=== PATIENT | male | born 1985 | race Caucasian/White ===

== ENCOUNTER 2016-06-16 12:55 | Emergency (ER) | payer OTHER ==
[~2016-06-16] VITALS: Ht 170.2 cm; Wt 95.0 kg
[~2016-06-16 12:55] MED LIST: CLIN1CAP5 PO; HYDR-3533 PO
[2016-06-16 13:17] VITALS: BP 107/73; PULSE 71; RESP 16; TEMP 98.3; O2SAT 97
--- NOTE | 2016-06-16 13:37 | PD ---
HPI Chief Complaint: Musculoskeletal Complaint Time Seen by Provider: 13:36 Travel History International Travel<30 days: No Contact w/Intl Traveler<30days: No Traveled to known affect area: No History of Present Illness HPI 30-year-old male with history of cystic fibrosis, kidney stones and Crohn's disease presents to the ED for evaluation of 2 day history of central back pain. Worsened by turning over in bed at night. Patient describes the pain as constant, somewhat diminished during the course of the day but still aching. He denies chest pain, palpitations, shortness of breath, abdominal pain, nausea or vomiting. He denies dysuria or urinary frequency. He does endorse dark color to the urine. Denies penile discharge. Denies numbness, tingling, weakness, limitations to range of motion of the lower extremities. Denies any known trauma to the back. PFSH Past Medical History Cystic Fibrosis: Yes Diminished Hearing: No Diverticulitis: Yes (CROHN'S DISEASE ) Gastrointestinal Disorders: Yes (CROHNS DISEASE) Respiratory: Yes (CYSTIC FIBROSIS) Immunizations Current: Yes Past Surgical History Abdominal Surgery: Yes (BOWEL RESECTIONS X 3 , 1983,1996,1998) Social History Alcohol Use: No Tobacco Use: No Substance Use: No Allergies-Medications (Allergen,Severity, Reaction): Coded Allergies: No Known Allergies (Unverified , 06/16/16) Reported Meds & Prescriptions Reported Meds & Active Scripts Active Flexeril (Cyclobenzaprine HCl) 10 Mg Tab 10 Mg PO TID Ibuprofen 800 Mg Tab 800 Mg PO Q8H PRN Review of Systems Except as stated in HPI: all other systems reviewed are Neg Physical Exam Narrative GENERAL: Well-nourished, well-developed nontoxic appearing white male in no acute distress. SKIN: Warm and dry. No rashes noted. HEAD: Normocephalic. EYES: No scleral icterus. No injection or drainage. NECK: Supple, trachea midline. No JVD or lymphadenopathy. CARDIOVASCULAR: Regular rate and rhythm without murmurs, gallops, or rubs. 2+ DP and radial pulses bilaterally. RESPIRATORY: Breath sounds clear and equal bilaterally. No accessory muscle use. GASTROINTESTINAL: Abdomen soft, non-tender, nondistended. Bowel sounds. MUSCULOSKELETAL: No cyanosis, or edema. He is noted to walk with a normal gait. BACK: Nontender without obvious deformity. ++ Bilateral CVA tenderness. Data Data Last Documented VS Vital Signs Date Time Temp Pulse Resp B/P Pulse Ox O2 Delivery O2 Flow Rate FiO2 06/16/16 13:17 98.3 71 16 107/73 97 Orders Urinalysis - C+S If Indicated (06/16/16 14:07) Ct Abd/Pel W/O Iv Contrast (06/16/16 14:10) Labs Laboratory Tests Test 06/16/16 14:30 Urine Collection Type CLEAN CATCH Urine Color YELLOW Urine Turbidity CLEAR Urine pH 6.0 Urine Specific [place] 1.018 Urine Protein NEG mg/dL Urine Glucose (UA) NEG mg/dL Urine Ketones NEG mg/dL Urine Occult Blood NEG Urine Nitrite NEG Urine Bilirubin NEG Urine Leukocyte Esterase NEG Urine WBC 0-2 /hpf Microscopic Urinalysis Comment CULT NOT INDICATED MDM Medical Decision Making Medical Screen Exam Complete: Yes Emergency Medical Condition: Yes Differential Diagnosis Pyelonephritis versus musculoskeletal pain versus nephroureterolithiasis versus other Narrative Course 30-year-old male with history of cystic fibrosis, kidney stones and Crohn's disease presents to the ED for evaluation of 2 day history of central back pain. Worsened by turning over in bed at night. Patient describes the pain as constant, somewhat diminished during the course of the day but still aching. Endorses dark colored urine. He denies chest pain, palpitations, shortness of breath, abdominal pain, nausea or vomiting, dysuria, increased urinary frequency ,penile discharge, numbness, tingling, weakness, limitations to range of motion of the lower extremities, known trauma to the back. Vitals reviewed. No culture indicated of the UA. CT reveals a 2 mm prostatic urethral stone, several nonobstructing stones in the right kidney. No obstructive uropathy noted. Discussed the results of CT with the patient. I explained to him that he had almost passed a kidney stone and had several more stones in the right kidney. I prescribed him 800 mg ibuprofen 3 times a day as needed for pain also prescribed a short course of muscle relaxers. Patient's instructed to follow-up with the urologist for further evaluation, return to the ED for worsening of symptoms. He indicated understanding of the instructions and was amenable to the plan of care. This patient is stable and discharged home. Diagnosis Primary Impression: Calculus of right kidney Additional Impression: Urethral stone Referrals: Primary Care Physician Urologist Patient Instructions: General Instructions, Kidney Stones (ED) Additional Instructions: Rest, hydrate. Take medications as prescribed. Do not drive while taking Flexeril. Follow-up with the urologist as discussed. Return to the ED for any urgent or emergent medical condition. Med/Other Pt SpecificInfo: Prescription(s) given Scripts Cyclobenzaprine (Flexeril)10 Mg Tab10 Mg PO TID #12 TAB Ref 0 Prov:Eric Rae MD 06/16/16 Ibuprofen 800 Mg [id number] Mg PO Q8H PRN (Pain/Inflammation) #20 TAB Ref 0 Prov:Eric Rae MD 06/16/16 Disposition: 01 DISCHARGE HOME Condition: Stable Areli Phillips Jun 16, 2016 13:36
[2016-06-16 14:36] LABS: BLOOD, URINE NEG (NEG); GLUCOSE,URINE NEG (NEG); KETONE, URINE NEG (NEG); NITRITE,URINE NEG (NEG)
[2016-06-16 14:46] LABS: COMMENT (UR) CULT NOT INDICATED; CULTURE IF INDICATED CULT NOT INDICATED; METHOD OF COLLECTION CLEAN CATCH; URINE COLOR YELLOW (YELLW/STRAW); WBC, URINE 0-2 /hpf (0-5)
--- NOTE | 2016-06-16 15:37 | RADHPO ---
EXAM DATE/TIME: 06/16/2016 15:06 [facility] COMPARISON: CT ABDOMEN & PELVIS W CONTRAST, November 07, 2013, 23:17. INDICATIONS : Back pain, right flank pain. ORAL CONTRAST: No oral contrast ingested. RADIATION DOSE: 23.43 CTDIvol (mGy) MEDICAL HISTORY : Crohn's disease. SURGICAL HISTORY : Colon resection. ENCOUNTER: Initial ACUITY: 1 day PAIN SCALE: 3/10 LOCATION: Abdomen TECHNIQUE: Volumetric scanning of the abdomen and pelvis was performed. Using automated exposure control and ad justment of the mA and/or kV according to patient size, radiation dose was kept as low as reasonably achievable to obtain optimal diagnostic quality images. FINDINGS: LOWER LUNGS: The visualized lower lungs are clear. LIVER: Liver is severely fatty infiltrated. No focal hepatic lesions seen. No ductal dilatation. SPLEEN: Normal size without lesion. PANCREAS: Diffuse fatty infiltration of the pancreas without mass or inflammatory changes. KIDNEYS: Right nonobstructing stones stones are present, 3 mm right upper pole, 2 mm right mid zone, 4 mm righ t mid zone to lower pole and 1 mm right lower pole. No stone on the left. No hydronephrosis or hydrou reter on either side. 2 mm stone seen of the upper prostate and may be within the urethra. It may hav e recently passed down one of the ureters. ADRENAL GLANDS: Within normal limits. VASCULAR: There is no aortic aneurysm. BOWEL/MESENTERY: Moderate stool throughout the colon. Nonobstructive pattern. No focal inflammatory changes are demons trated. There is no free fluid. ABDOMINAL WALL: Within normal limits. RETROPERITONEUM: There is no lymphadenopathy. BLADDER: No wall thickening or mass. REPRODUCTIVE: Within normal limits. INGUINAL: There is no lymphadenopathy or hernia. MUSCULOSKELETAL: Within normal limits for patient age. CONCLUSION: 1. 2 mm stone that is potentially in the prostatic urethra and could have recently passed out of one of the ureters. No acute obstructive uropathy demonstrated. There are several nonobstructing stones o f the right kidney. 2. Severe fatty infiltration of the liver. 3. No obstruction or acute inflammatory changes seen of the gastrointestinal tract. Moderate stool th roughout the colon. Florin Arredondo MD on June 16, 2016 at 15:31 Board Certified Radiologist. This report was verified electronically.
[2016-06-16] MEDS ORDERED: CYCL1TAB29 PO (15:46)
[2016-06-16] MEDS ORDERED: IBUP800T23 PO (15:46)
== END 2016-06-16 15:51 | disposition home or self-care (01) ==
LOC: PHEFT 12:55
DX: N20.0 Calculus of kidney (principal); N21.1 Calculus in urethra
CPT/HCPCS: 74176; 81001

== ENCOUNTER 2016-09-07 16:24 | Inpatient (IN) | payer OTHER ==
[~2016-09-07] VITALS: Ht 170.2 cm; Wt 93.6 kg
[~2016-09-07 16:24] MED LIST changes: -CLIN1CAP5 PO; +CYCL1TAB29 PO; -HYDR-3533 PO; +IBUP800T23 PO
[2016-09-07 16:30] VITALS: BP 116/84; PULSE 91; RESP 20; TEMP 98.3; O2SAT 97
[2016-09-07] MEDS ORDERED: MILK200C2 PO (16:58)
[2016-09-07] MEDS ORDERED: OMEP20TA PO (16:58)
[2016-09-07] MEDS ORDERED: CO Q50CA PO (16:58)
[2016-09-07] MEDS ORDERED: MULTTAB68 PO (16:58)
[2016-09-07] MEDS ORDERED: SODIUM CHLOR 0.9% 1000 ML INJ 1,000 ML IV ONE (17:00)
[2016-09-07] MEDS ORDERED: MORPHINE SULFATE 4 MG/ML INJ IV ONE (17:00)
[2016-09-07] MEDS ORDERED: ONDANSETRON HCL 4 MG/2 ML VIAL IVP ONE (17:00)
[2016-09-07 17:08] LABS: BLOOD, URINE NEG (NEG); GLUCOSE,URINE NEG (NEG); KETONE, URINE NEG (NEG); NITRITE,URINE NEG (NEG); PH, URINE 5.5 (5.0-8.5)
[2016-09-07 17:14] LABS: URINE COLOR YELLOW (YELLW/STRAW)
[2016-09-07 17:15] LABS: COMMENT (UR) CULTURE INDICATED; CULTURE IF INDICATED CULTURE INDICATED
[2016-09-07 17:16] LABS: CHLORIDE 106 MEQ/L (98-107); SODIUM (NA) 140 MEQ/L (136-145)
[2016-09-07 17:20] LABS: ANION GAP 7 MEQ/L (5-15); BICARBONATE 26.7 MEQ/L (21.0-32.0)
[2016-09-07 17:21] LABS: BLOOD UREA NITROGEN 9 MG/DL (7-18)
[2016-09-07 17:23] LABS: ALT (GPT) 128 U/L (12-78); AST (GOT) 72 U/L (15-37); GLOMERULAR FILTRATION RATE 78 ML/MIN (>89)
[2016-09-07 17:25] LABS: TOTAL BILIRUBIN ADULT 1.4 MG/DL (0.2-1.0)
[2016-09-07 17:26] LABS: ALKALINE PHOSPHATASE 154 U/L (45-117)
--- NOTE | 2016-09-07 17:29 | PD ---
HPI Chief Complaint: Abdominal Pain Time Seen by Provider: 16:44 Travel History International Travel<30 days: No Contact w/Intl Traveler<30days: No Traveled to known affect area: No History of Present Illness HPI 30-year-old male presents with right upper quadrant abdominal pain over the past week or so. Dr. Ruth his GI specialist did an outpatient hida scan that showed no function to his gallbladder. He states that he hasn't had an ultrasound recently yet. He states that the pain got worse so he elected to come here. Quality pain is sharp. Severity is moderate. He denies other modifying factors other than food and movement. He denies other concurrent complaints. PFSH Past Medical History Cystic Fibrosis: Yes Diminished Hearing: No Diverticulitis: Yes (CROHN'S DISEASE ) Gastrointestinal Disorders: Yes (CROHNS DISEASE) Respiratory: Yes (CYSTIC FIBROSIS) Immunizations Current: Yes Influenza Vaccination: No Past Surgical History Abdominal Surgery: Yes (BOWEL RESECTIONS X 3 , 1983,1996,1998) Social History Alcohol Use: No Tobacco Use: No Substance Use: No Allergies-Medications (Allergen,Severity, Reaction): Coded Allergies: No Known Allergies (Unverified , 09/07/16) Reported Meds & Prescriptions Reported Meds & Active Scripts Active Reported Milk Thistle (Milk Thistle Seed Extract) 200 Mg Capsule 1 Cap PO DAILY Co Q-10 (Coenzyme Q10 (Ubidecarenone)) 50 Mg Cap 1 Cap PO DAILY Urt-Ugxpuh-Wjckr (Multivitamin) 1 Each Tablet 1 Tab PO DAILY Omeprazole 20 Mg Tab 20 Mg PO DAILY Review of Systems Except as stated in HPI: all other systems reviewed are Neg Physical Exam Narrative GENERAL: Well-nourished, well-developed patient. SKIN: Warm and dry. HEAD: Normocephalic and atraumatic. EYES: No injection or drainage. ENT: No nasal drainage noted. NECK: Supple, trachea midline. CARDIOVASCULAR: Regular rate and rhythm RESPIRATORY: no increased effort. No accessory muscle use. GASTROINTESTINAL: Abdomen soft, ttp in ruq, nondistended. NEUROLOGICAL: Awake and alert. moves all extremities. Normal speech. Data Data Last Documented VS Vital Signs Date Time Temp Pulse Resp B/P Pulse Ox O2 Delivery O2 Flow Rate FiO2 09/07/16 19:15 16 09/07/16 19:15 80 117/69 98 Room Air 09/07/16 16:30 98.3 Orders Urinalysis - C+S If Indicated (09/07/16 16:31) Complete Blood Count With Diff (09/07/16 16:44) Comprehensive Metabolic Panel (09/07/16 16:44) Lipase (09/07/16 16:44) Iv Access Insert/Monitor (09/07/16 16:44) Us Abdomen Gallbladder (09/07/16 16:59) Morphine Inj (Morphine Inj) (09/07/16 17:00) Ondansetron Inj (Zofran Inj) (09/07/16 17:00) Sodium Chlor 0.9% 1000 Ml Inj (Ns 1000 M (09/07/16 17:00) Urine Culture (09/07/16 16:46) Admit Order (Ed Use Only) (09/07/16 20:00) Labs Laboratory Tests Test 09/07/16 09/07/16 16:46 16:53 Urine Color YELLOW Urine Turbidity CLEAR Urine pH 5.5 Urine Specific [place] 1.021 Urine Protein NEG mg/dL Urine Glucose (UA) NEG mg/dL Urine Ketones NEG mg/dL Urine Occult Blood NEG Urine Nitrite NEG Urine Bilirubin NEG Urine Leukocyte Esterase NEG Urine WBC 3-5 /hpf Urine WBC Clumps RARE Microscopic Urinalysis Comment CULTURE INDICATED White Blood Count 12.6 TH/MM3 Red Blood Count 4.69 MIL/MM3 Hemoglobin 14.5 GM/DL Hematocrit 42.7 % Mean Corpuscular Volume 91.0 FL Mean Corpuscular Hemoglobin 31.0 PG Mean Corpuscular Hemoglobin 34.0 % Concent Red Cell Distribution Width 12.2 % Platelet Count 143 TH/MM3 Mean Platelet Volume 10.0 FL Neutrophils (%) (Auto) 82.3 % Lymphocytes (%) (Auto) 10.3 % Monocytes (%) (Auto) 6.1 % Eosinophils (%) (Auto) 0.8 % Basophils (%) (Auto) 0.5 % Neutrophils # (Auto) 10.3 TH/MM3 Lymphocytes # (Auto) 1.3 TH/MM3 Monocytes # (Auto) 0.8 TH/MM3 Eosinophils # (Auto) 0.1 TH/MM3 Basophils # (Auto) 0.1 TH/MM3 CBC Comment AUTO DIFF Differential Comment AUTO DIFF CONFIRMED Sodium Level 140 MEQ/L Potassium Level 4.0 MEQ/L Chloride Level 106 MEQ/L Carbon Dioxide Level 26.7 MEQ/L Anion Gap 7 MEQ/L Blood Urea Nitrogen 9 MG/DL Creatinine 1.10 MG/DL Estimat Glomerular Filtration 78 ML/MIN Rate Random Glucose 141 MG/DL Calcium Level 9.3 MG/DL Total Bilirubin 1.4 MG/DL Aspartate Amino Transf 72 U/L (AST/SGOT) Alanine Aminotransferase 128 U/L (ALT/SGPT) Alkaline Phosphatase 154 U/L Total Protein 8.3 GM/DL Albumin 3.9 GM/DL Lipase 40 U/L MDM Medical Decision Making Medical Screen Exam Complete: Yes Emergency Medical Condition: Yes Medical Record Reviewed: Yes (pmh confirmed) Interpretation(s) CBC & BMP Diagram 09/07/16 16:53 Differential Diagnosis Cholelithiasis, choledocholithiasis, cholecystitis, gastritis... Narrative Course Will check blood work, ultrasound and dose with Zofran and morphine and discuss with his specialist Physician Communication Physician Communication Dr. Ruth states patient had nonfunctioning Hida from his memory through [facility]. He states he has done EGD and colonoscopy which showed no active Crohn's disease recently. He agrees to blood work and ultrasound and requests callback dr bauman to follow ultrasound and reeval Loida Garzon MD Sep 07, 2016 17:29
[2016-09-07 17:58] LABS: AUTOMATED NEUTROPHIL # 10.3 TH/MM3 (1.8-7.7); BASOPHIL # 0.1 TH/MM3 (0-0.2); BASOPHIL % 0.5 % (0.0-2.0); EOSINOPHIL # 0.1 TH/MM3 (0-0.4); EOSINOPHIL % 0.8 % (0.0-4.0); HEMATOCRIT 42.7 % (39.0-51.0); LYMPH % 10.3 % (9.0-44.0); LYMPHOCYTE # 1.3 TH/MM3 (1.0-4.8); MONO % 6.1 % (0.0-8.0); NEUT % 82.3 % (16.0-70.0); PLATELET COUNT 143 TH/MM3 (150-450); RED BLOOD COUNT 4.69 MIL/MM3 (4.50-5.90); RED CELL DISTRIBUTION WIDTH 12.2 % (11.6-17.2); WHITE BLOOD COUNT 12.6 TH/MM3 (4.0-11.0)
[2016-09-07 17:59] LABS: HEMO FLAGS AUTO DIFF
[2016-09-07 18:47] LABS: SCAN/DIFF AUTO DIFF CONFIRMED
[2016-09-07 19:15] VITALS: BP 117/69; PULSE 80; RESP 18; O2SAT 98
--- NOTE | 2016-09-07 19:30 | RADHPO ---
EXAM DATE/TIME: 09/07/2016 17:59 [facility] COMPARISON: CT ABDOMEN & PELVIS W CONTRAST, March 25, 2009, 10:11. CT ABDOMEN & PELVIS W CONTRAST, November 07, 2013, 23:17. CT ABDOMEN & PELVIS W/O CONTRAST, June 16, 2016, 15:06. INDICATIONS : Right upper quadrant pain. MEDICAL HISTORY : Crohn's disease. Diverticulitis. Cystic fibrosis. SURGICAL HISTORY : Bowel resections x3. ENCOUNTER: Initial ACUITY: 2 days PAIN SCORE: 10/10 LOCATION: Right upper quadrant MEASUREMENTS: LIVER: 17.0 cm length COMMON DUCT: 6 mm RIGHT KIDNEY: 11.9 x 5.1 x 5.4 cm FINDINGS: LIVER: The liver is diffusely echogenic. No mass or ductal dilatation. Hepatopedal flow within the portal ve in. The degree of hepatic steatosis causes a reduction in the through-transmission of the sonogram be am. This limits evaluation of the central portions of the liver. COMMON DUCT: No intraluminal mass or stone visualized. GALLBLADDER: I cannot confidently identify the gallbladder. I have reviewed the prior CT scans dating back to 2008 . The patient clearly had a gallbladder in [address] scans did not show a discernibl e gallbladder. What is being measured on the current images is felt to relate to bowel. PANCREAS: The visualized portions are within normal limits. RIGHT KIDNEY: No evidence of hydronephrosis, stone, or mass. CONCLUSION: 1. There are some limitations to this study. The bowel gas and significant hepatic steatosis limits t he evaluation of the gallbladder. I cannot confidently identify the gallbladder and question whether the patient even has a gallbladder. HIDA scan could be considered to further evaluate. 2. Hepatic steatosis. Leonidas Mahmood Jr., MD on September 07, 2016 at 19:07 Board Certified Radiologist. This report was verified electronically.
--- NOTE | 2016-09-07 20:09 | PD ---
Physical Exam Time Seen by Provider: 20:[address] Costello left this patient with me to check the results of the ultrasound and make a disposition. Data Data Last Documented VS Vital Signs Date Time Temp Pulse Resp B/P Pulse Ox O2 Delivery O2 Flow Rate FiO2 09/07/16 16:30 98.3 91 20 116/84 97 Orders Urinalysis - C+S If Indicated (09/07/16 16:31) Complete Blood Count With Diff (09/07/16 16:44) Comprehensive Metabolic Panel (09/07/16 16:44) Lipase (09/07/16 16:44) Iv Access Insert/Monitor (09/07/16 16:44) Us Abdomen Gallbladder (09/07/16 16:59) Morphine Inj (Morphine Inj) (09/07/16 17:00) Ondansetron Inj (Zofran Inj) (09/07/16 17:00) Sodium Chlor 0.9% 1000 Ml Inj (Ns 1000 M (09/07/16 17:00) Urine Culture (09/07/16 16:46) Admit Order (Ed Use Only) (09/07/16 20:00) Labs Laboratory Tests Test 09/07/16 09/07/16 16:46 16:53 Urine Color YELLOW Urine Turbidity CLEAR Urine pH 5.5 Urine Specific [place] 1.021 Urine Protein NEG mg/dL Urine Glucose (UA) NEG mg/dL Urine Ketones NEG mg/dL Urine Occult Blood NEG Urine Nitrite NEG Urine Bilirubin NEG Urine Leukocyte Esterase NEG Urine WBC 3-5 /hpf Urine WBC Clumps RARE Microscopic Urinalysis Comment CULTURE INDICATED White Blood Count 12.6 TH/MM3 Red Blood Count 4.69 MIL/MM3 Hemoglobin 14.5 GM/DL Hematocrit 42.7 % Mean Corpuscular Volume 91.0 FL Mean Corpuscular Hemoglobin 31.0 PG Mean Corpuscular Hemoglobin 34.0 % Concent Red Cell Distribution Width 12.2 % Platelet Count 143 TH/MM3 Mean Platelet Volume 10.0 FL Neutrophils (%) (Auto) 82.3 % Lymphocytes (%) (Auto) 10.3 % Monocytes (%) (Auto) 6.1 % Eosinophils (%) (Auto) 0.8 % Basophils (%) (Auto) 0.5 % Neutrophils # (Auto) 10.3 TH/MM3 Lymphocytes # (Auto) 1.3 TH/MM3 Monocytes # (Auto) 0.8 TH/MM3 Eosinophils # (Auto) 0.1 TH/MM3 Basophils # (Auto) 0.1 TH/MM3 CBC Comment AUTO DIFF Differential Comment AUTO DIFF CONFIRMED Sodium Level 140 MEQ/L Potassium Level 4.0 MEQ/L Chloride Level 106 MEQ/L Carbon Dioxide Level 26.7 MEQ/L Anion Gap 7 MEQ/L Blood Urea Nitrogen 9 MG/DL Creatinine 1.10 MG/DL Estimat Glomerular Filtration 78 ML/MIN Rate Random Glucose 141 MG/DL Calcium Level 9.3 MG/DL Total Bilirubin 1.4 MG/DL Aspartate Amino Transf 72 U/L (AST/SGOT) Alanine Aminotransferase 128 U/L (ALT/SGPT) Alkaline Phosphatase 154 U/L Total Protein 8.3 GM/DL Albumin 3.9 GM/DL Lipase 40 U/L [facility] Medical Record Reviewed: Yes Supervised Visit with YVROSE: Yes Interpretation(s) The ultrasound of the gallbladder was apparently limited by bowel gas in the gallbladder could not be identified. A previous hida scan a [facility] showed nonfunctioning of the gallbladder. The lipase is normal. The urine is normal except for rare white cell clumping's and culture is indicated. The CBC shows white count of 12,600 with 143,000 platelets and 82% neutrophils but is otherwise unremarkable. Differential Diagnosis Acute cholecystitis, gastritis, pancreatitis, choledocholithiasis, ulcer pain, gastroenteritis, electrolyte disorder Physician Communication Physician Communication I discussed the patient with Dr. Saleem, the patient will be 23 hour observation to her. Diagnosis Primary Impression: Intractable abdominal pain Additional Impressions: Intractable vomiting with nausea Liver enzyme elevation Admitting Information Admitting Physician Requests: Observation Jarad Rose MD Sep 07, 2016 20:09
[2016-09-07 20:15] VITALS: BP_SYST 112; BP_SYST 12; BP_DIAS 77; PULSE 78; RESP 16; O2SAT 98
[2016-09-07] MEDS ORDERED: SODIUM CHLORIDE 0.9% FLUSH 10 ML FLUSH IV FLUSH PRN (20:15)
[2016-09-07] MEDS ORDERED: BISACODYL 10 MG SUPP RECTAL PRN (20:15)
[2016-09-07] MEDS ORDERED: LACTULOSE SYRUP 20 GM/30 ML CUP PO PRN (20:15)
[2016-09-07] MEDS ORDERED: SENNOSIDES 8.6 MG TAB PO PRN (20:15)
[2016-09-07] MEDS ORDERED: MAGNESIUM HYDROXIDE SUSP 30 ML CUP PO PRN (20:15)
[2016-09-07] MEDS ORDERED: HYDROmorphone HCL PF 1 MG/ML VIAL IVP ONE (20:45)
[2016-09-07] MEDS ORDERED: ONDANSETRON HCL 4 MG/2 ML VIAL IV ONE (20:45)
[2016-09-07] MEDS: DOCUSATE SODIUM 50 MG/SENNA 8.6 MG TAB PO SCH (21:05)
[2016-09-07] MEDS: SODIUM CHLOR 0.9% 1000 ML INJ 1,000 ML IV SCH (21:07)
[2016-09-07] MEDS: PANTOPRAZOLE SODIUM 40 MG VIAL IV PUSH SCH (21:07)
[2016-09-07 21:10] VITALS: BP 119/73; PULSE 80; RESP 16; O2SAT 97
[2016-09-07] MEDS: SODIUM CHLORIDE 0.9% FLUSH 10 ML FLUSH IV FLUSH SCH (21:12)
[2016-09-07 22:05] VITALS: BP 112/71; PULSE 78; RESP 17; O2SAT 96
[2016-09-07 22:50] VITALS: BP 118/74; PULSE 85; RESP 16; O2SAT 97
[2016-09-07] MEDS: MORPHINE SULFATE 4 MG/ML INJ IV PRN (23:38)
[2016-09-08 00:53] VITALS: BP 109/75; PULSE 88; RESP 14; TEMP 97.7; O2SAT 97
[2016-09-08] MEDS: MORPHINE SULFATE 4 MG/ML INJ IV PRN ×5 (03:51→20:21)
[2016-09-08] MEDS: ONDANSETRON HCL 4 MG/2 ML VIAL IVP PRN (03:56)
[2016-09-08] MEDS: SODIUM CHLOR 0.9% 1000 ML INJ 1,000 ML IV SCH ×2 (06:37→16:13)
[2016-09-08 08:00] VITALS: BP 127/80; PULSE 84; RESP 20; TEMP 97.4; O2SAT 97
[2016-09-08] MEDS: DOCUSATE SODIUM 50 MG/SENNA 8.6 MG TAB PO SCH ×2 (08:02→20:20)
[2016-09-08] MEDS: PANTOPRAZOLE SODIUM 40 MG VIAL IV PUSH SCH ×2 (08:02→20:20)
[2016-09-08] MEDS: SODIUM CHLORIDE 0.9% FLUSH 10 ML FLUSH IV FLUSH SCH ×2 (08:06→20:19)
[2016-09-08 08:13] LABS: EOSINOPHIL # 0.1 TH/MM3 (0-0.4); EOSINOPHIL % 0.7 % (0.0-4.0); HEMATOCRIT 41.2 % (39.0-51.0); LYMPH % 5.5 % (9.0-44.0); LYMPHOCYTE # 0.8 TH/MM3 (1.0-4.8); MEAN CELL VOLUME 91.4 FL (80.0-100.0); MEAN CORPUSCULAR HEMOGLOBIN 30.6 PG (27.0-34.0); MEAN CORPUSCULAR HGB CONC 33.5 % (32.0-36.0); NEUT % 84.8 % (16.0-70.0); PLATELET COUNT 204 TH/MM3 (150-450); RED BLOOD COUNT 4.51 MIL/MM3 (4.50-5.90); RED CELL DISTRIBUTION WIDTH 12.4 % (11.6-17.2); WHITE BLOOD COUNT 15.3 TH/MM3 (4.0-11.0)
[2016-09-08 08:17] LABS: CHLORIDE 106 MEQ/L (98-107); INTERNATIONAL NORMALIZED RATIO 1.1 RATIO; POTASSIUM 4.2 MEQ/L (3.5-5.1); SODIUM (NA) 143 MEQ/L (136-145)
[2016-09-08 08:18] LABS: HEMO FLAGS DIFF FINAL
[2016-09-08 08:24] LABS: ANION GAP 8 MEQ/L (5-15); BICARBONATE 29.3 MEQ/L (21.0-32.0)
[2016-09-08 08:25] LABS: BLOOD UREA NITROGEN 9 MG/DL (7-18)
[2016-09-08 08:28] LABS: ALT (GPT) 110 U/L (12-78); AST (GOT) 55 U/L (15-37); GLOMERULAR FILTRATION RATE 103 ML/MIN (>89)
[2016-09-08 08:29] LABS: TOTAL BILIRUBIN ADULT 2.3 MG/DL (0.2-1.0)
[2016-09-08 08:30] LABS: ALKALINE PHOSPHATASE 149 U/L (45-117)
[2016-09-08] MEDS ORDERED: LORazepam 2 MG/ML VIAL IV PUSH ONE (09:00)
--- NOTE | 2016-09-08 09:19 | HHI.HP ---
[facility] Physician Anel Hwang MD Admission Diagnosis intractable abdominal pain/vomiting Diagnoses: (1) Intractable abdominal pain Diagnosis: Principal (2) Liver enzyme elevation Diagnosis: Principal Chief Complaint: abdominal pain Travel History International Travel<30 Days: No Contact w/Intl Traveler <30 Da: No Traveled to Known Affected Are: No History of Present Illness patient is a 30 y/o male with history of Crohn's and cystic fibrosis who presented to ER with abdominal pain. he says that the pain started about a week ago. pain is more or less localized to epigastric area with some radiation to the RUQ. pain is severe in intensity and gets worse with any movement. pain was associated with nausea and one episode of emesis yesterday. he denies any fever or chills. he says that he had HIDA as outpatient and because of persistent pain he decided to come to ER. he's being followed up by . Review of Systems Constitutional: DENIES: Fever, Weight loss, Chills, Night Sweats Eyes: DENIES: Blurred vision, Diplopia, Vision loss, Double Vision Ears, nose, mouth, throat: DENIES: Tinnitus, Vertigo, Throat pain, Epistaxis Respiratory: DENIES: Apneas, Cough, Snoring, Wheezing, Hemoptysis, Sputum production, Shortness of breath Cardiovascular: DENIES: Chest pain, Palpitations, Syncope, Dyspnea on Exertion , PND, Lower Extremity Edema, Orthopnea, Claudication Gastrointestinal: COMPLAINS OF: Abdominal pain, Nausea, Vomiting, DENIES: Black stools, Bloody stools, Constipation, Diarrhea, Difficulty Swallowing, Anorexia Genitourinary: DENIES: Urinary frequency, Urgency, Hematuria, Dysuria Musculoskeletal: DENIES: Joint pain, Muscle aches, Stiffness, Joint Swelling Integumentary: DENIES: Rash Neurologic: DENIES: Abnormal gait, Headache, Localized weakness, Paresthesias, Seizures, Speech Problems, Tremor, Poor Balance Psychiatric: DENIES: Anxiety, Confusion, Mood changes, Depression, Hallucinations, Agitation, Suicidal Ideation, Homicidal Ideation, Delusions Past Family Social History Past Medical History Crohn's disease cystic fibrosis Past Surgical History colon resection Reported Medications multivitamin Allergies: Coded Allergies: No Known Allergies (Unverified , 09/07/16) Active Ordered Medications Current Medications Morphine Sulfate (Morphine Inj) 4 mg ONCE ONCE IV Last administered on 17:23; Start 09/07/16 at 17:00; Stop 09/07/16 at 17:01; Status DC Ondansetron HCl 4 mg 4 mg ONCE ONCE IVP Last administered on 09/07/16 17:22; Start 09/07/16 at 17:00; Stop 09/07/16 at 17:01; Status DC Sodium Chloride (NS 1000 ml Inj) 1,000 ml @ 999 mls/hr BOLUS ONCE IV Last administered on 09/07/16 17:22; Start 09/07/16 at 17:00; Stop 09/07/16 at 18:00; Status DC Pantoprazole Sodium 40 mg 40 mg Q12HR IV PUSH Last administered on 09/08/16 08: 02; Start 09/07/16 at 21:00 Sodium Chloride (NS 1000 ml Inj) 1,000 ml @ 100 mls/hr Q10H IV Last administered on 09/08/16 06:37; Start 09/07/16 at 20:06 Sodium Chloride (NS Flush) 2 ml UNSCH PRN IV FLUSH FLUSH AFTER USING IV ACCESS ; Start 09/07/16 at 20:15 Sodium Chloride (NS Flush) 2 ml BID IV FLUSH Last administered on 09/08/16 08: 06; Start 09/07/16 at 21:00 Ondansetron HCl (Zofran Inj) 4 mg Q6H PRN IVP NAUSEA OR VOMITING Last administered on 09/08/16 03:56; Start 09/07/16 at 20:15 Acetaminophen (Tylenol) 650 mg Q6H PRN PO FEVER; Start 09/07/16 at 20:15 Morphine Sulfate (Morphine Inj) 2 mg Q3H PRN IV Pain 6-10 Last administered on 09/08/16 06:43; Start 09/07/16 at 20:15 Oxycodone HCl (Roxicodone) 5 mg Q4H PRN PO PAIN SCALE 3 TO 5 Last administered on 09/08/16 02:02; Start 09/07/16 at 20:15 Senna/Docusate Sodium (Minda-Colace) 1 tab BID PO Last administered on 09/08/16 08:02; Start 09/07/16 at 21:00 Magnesium Hydroxide (Milk Of Magnesia Liq) 30 ml Q12H PRN PO MILD - MODERATE CONSTIPATION; Start 09/07/16 at 20:15 Sennosides (Senokot) 17.2 mg Q12H PRN PO MODERATE - SEVERE CONSTIPATION; Start 09/07/16 at 20:15 Bisacodyl (Dulcolax Supp) 10 mg DAILY PRN RECTAL SEVERE CONSITIPATION; Start at 20:15 Lactulose (Lactulose Liq) 30 ml DAILY PRN PO SEVERE CONSITIPATION; Start at 20:15 Hydromorphone HCl (Dilaudid Pf Inj) 0.5 mg ONCE ONCE IVP Last administered on 09/07/16 21:17; Start 09/07/16 at 20:45; Stop 09/07/16 at 20:46; Status DC Ondansetron HCl (Zofran Inj) 4 mg ONCE ONCE IV Last administered on 09/07/16 21:13; Start 09/07/16 at 20:45; Stop 09/07/16 at 20:46; Status DC Lorazepam (Ativan Inj) 1 mg ONCE ONCE IV PUSH ; Start 09/08/16 at 09:00; Stop at 09:01 Social History no smoking or drinking. Physical Exam Vital Signs Vital Signs Date Time Temp Pulse Resp B/P Pulse Ox O2 Delivery O2 Flow Rate FiO2 09/08/16 08:00 97.4 84 20 127/80 97 09/08/16 06:48 18 09/08/16 03:02 19 09/08/16 00:53 97.7 88 14 109/75 97 09/07/16 22:50 85 16 118/74 97 Room Air 09/07/16 22:05 78 17 112/71 96 Room Air 09/07/16 22:00 16 09/07/16 21:10 80 16 119/73 97 Room Air 09/07/16 20:15 78 16 112/77 98 Room Air 09/07/16 19:15 16 09/07/16 19:15 80 18 117/69 98 Room Air 09/07/16 16:30 98.3 91 20 116/84 97 Physical Exam GENERAL: This is a well-nourished, well-developed patient, in no apparent distress. SKIN: No rashes, ecchymoses or lesions. Cool and dry. HEAD: Atraumatic. Normocephalic. No temporal or scalp tenderness. EYES: Pupils equal round and reactive. Extraocular motions intact. No scleral icterus. No injection or drainage. ENT: Nose without bleeding, purulent drainage or septal hematoma. Throat without erythema, tonsillar hypertrophy or exudate. Uvula midline. Airway patent. NECK: Trachea midline. No JVD or lymphadenopathy. Supple, nontender, no meningeal signs. CARDIOVASCULAR: Regular rate and rhythm without murmurs, gallops, or rubs. RESPIRATORY: Clear to auscultation. Breath sounds equal bilaterally. No wheezes , rales, or rhonchi. GASTROINTESTINAL: Abdomen soft with epigastric and RUQ tenderness, nondistended. No hepato-splenomegaly, or palpable masses. No guarding. MUSCULOSKELETAL: Extremities without clubbing, cyanosis, or edema. No joint tenderness, effusion, or edema noted. No calf tenderness. Negative Homans sign bilaterally. NEUROLOGICAL: Awake and alert. Cranial nerves II through XII intact. Motor and sensory grossly within normal limits. Five out of 5 muscle strength in all muscle groups. Normal speech. Laboratory Laboratory Tests Test 09/07/16 09/07/16 09/08/16 16:46 16:53 07:15 Urine Color YELLOW Urine Turbidity CLEAR Urine pH 5.5 Urine Specific [place] 1.021 Urine Protein NEG Urine Glucose (UA) NEG Urine Ketones NEG Urine Occult Blood NEG Urine Nitrite NEG Urine Bilirubin NEG Urine Leukocyte Esterase NEG Urine WBC 3-5 Urine WBC Clumps RARE Microscopic Urinalysis Comment CULTURE INDICATED White Blood Count 12.6 15.3 Red Blood Count 4.69 4.51 Hemoglobin 14.5 13.8 Hematocrit 42.7 41.2 Mean Corpuscular Volume 91.0 91.4 Mean Corpuscular Hemoglobin 31.0 30.6 Mean Corpuscular Hemoglobin 34.0 33.5 Concent Red Cell Distribution Width 12.2 12.4 Platelet Count 143 204 Mean Platelet Volume 10.0 10.0 Neutrophils (%) (Auto) 82.3 84.8 Lymphocytes (%) (Auto) 10.3 5.5 Monocytes (%) (Auto) 6.1 9.0 Eosinophils (%) (Auto) 0.8 0.7 Basophils (%) (Auto) 0.5 0.0 Neutrophils # (Auto) 10.3 13.0 Lymphocytes # (Auto) 1.3 0.8 Monocytes # (Auto) 0.8 1.4 Eosinophils # (Auto) 0.1 0.1 Basophils # (Auto) 0.1 0.0 CBC Comment AUTO DIFF DIFF FINAL Differential Comment AUTO DIFF CONFIRMED Sodium Level 140 143 Potassium Level 4.0 4.2 Chloride Level 106 106 Carbon Dioxide Level 26.7 29.3 Anion Gap 7 8 Blood Urea Nitrogen 9 9 Creatinine 1.10 0.86 Estimat Glomerular Filtration 78 103 Rate Random Glucose 141 115 Calcium Level 9.3 9.0 Total Bilirubin 1.4 2.3 Aspartate Amino Transf 72 55 (AST/SGOT) Alanine Aminotransferase 128 110 (ALT/SGPT) Alkaline Phosphatase 154 149 Total Protein 8.3 7.3 Albumin 3.9 3.5 Lipase 40 Prothrombin Time 12.0 Prothromb Time International 1.1 Ratio Date/Time Procedure Status Source Growth 09/07/16 16:46 Urine Culture Received Urine Clean Catch Pending Result Diagram: 09/08/16 0715 09/08/16 0715 Imaging Last Impressions Gall Bladder Ultrasound 09/07/16 1659 Signed Impressions: Service Date/Time: Wednesday, September 07, 2016 17:59 - CONCLUSION: 1. There are some limitations to this study. The bowel gas and significant hepatic steatosis limits the evaluation of the gallbladder. I cannot confidently identify the gallbladder and question whether the patient even has a gallbladder. HIDA scan could be considered to further evaluate. 2. Hepatic steatosis. Leonidas Mahmood Jr., MD Assessment and Plan Assessment and Plan A/P - abdominal pain with elevated LFT's with history of Crohn's and cystic fibrosis NPO for now- continue IV fluid and supportive care with pain control and antiemetics as needed. MRCP ordered- d/w . Discussed Condition With the patient and . Jung Mcallister MD Sep 08, 2016 09:18
--- NOTE | 2016-09-08 11:35 | RADHPO ---
EXAM DATE/TIME: 09/08/2016 10:17 This report includes an Addendum and supersedes previous reports for this exam. [facility] COMPARISON: CT ABDOMEN & PELVIS W/O CONTRAST, June 16, 2016, 15:06. INDICATIONS : Abdominal pain. Nausea. MEDICAL HISTORY : Crohn's disease. Cystic fibrosis. SURGICAL HISTORY : Bowel resection. ENCOUNTER: Initial ACUITY: 2 day PAIN SCORE: 2/10 LOCATION: upper quadrant TECHNIQUE: Multiplanar, multisequence magnetic resonance imaging of the abdomen was performed. High-resolution 3D dataset was utilized to reconstruct maximum-intensity projection (MIP) images. FINDINGS: INTRAHEPATIC BILE DUCTS: Within normal limits. No significant anatomical variant is present. EXTRAHEPATIC BILE DUCTS: The common bile duct measures 5 mm No stone or filling defect is identified. GALLBLADDER: From the clinical history is unclear the patient has had a cholecystectomy. A gallbladder is not iden tified on this study. There is cut off of the cystic duct. A possible collapsed gallbladder is seen o n prior CT. LIVER: Normal size and signal intensity. No concerning liver lesion is identified on this non-contrast exam. PANCREAS: Diffusely fatty replaced pancreas OTHER: The remaining visualized structures demonstrate no acute abnormality on this non-contrast exam. CONCLUSION: 1. Fatty-replaced pancreas consistent with the patient's history of cystic fibrosis. 2. Intrahepatic and extrahepatic biliary ducts within normal limits. 3. Gallbladder not identified. Ilir Allison MD on September 08, 2016 at 11:27 Board Certified Radiologist. This report was verified electronically. ADDENDUM: Multiple dilated loops of small bowel are seen measuring up to 4.5 cm in diameter. Ilir Allison MD on September 09, 2016 at 9:24 Board Certified Radiologist. This report was verified electronically.
[2016-09-08 12:00] VITALS: BP 148/91; PULSE 93; RESP 20; TEMP 98.2; O2SAT 97
--- NOTE | 2016-09-08 15:45 | MB ---
cc: RIDGE BENOIT M.D., KETUL MINOUEI, MOHAMMADREZA MD DAVIS,JINNY Reddy MD DATE OF CONSULTATION 09/08/16 DATE OF 1985 [address] [address] Ridge Benoit HISTORY OF PRESENT ILLNESS The patient is a 30-year-old white male I was asked to see for further evaluation management of abdominal pain. He has a long history of cystic fibrosis and Crohn's disease status post surgical resection of part of the small intestine and/or colon (the family is not quite sure) at about age [age]. He has been on no medications for Crohn's disease or medications for cystic fibrosis for many, many years. He has been feeling well. He tells me that colonoscopy attempt was incomplete because of an obstruction but he is not sure of the details. We will try to obtain that from the office computer system. He presented with a sudden onset mid to lower abdominal pain on the right with onset yesterday. Some nausea, one episode of emesis yesterday. No fever or chills. No diarrhea. No melena, hematochezia. He feels constipated. His medical history is only significant for the cystic fibrosis and Crohn's disease. PAST SURGICAL HISTORY The small intestine and/or colon resection for the Crohn's disease. The gallbladder was not removed according to his parents. MEDICATIONS ON ADMISSION 1. Multivitamin. 2. Milk thistle product, liver cleanse substance over the counter. He takes no prescription medications. Here in the hospital he is receivin. Ondansetron. 2. Morphine and oxycodone to control his discomfort. FAMILY HISTORY Gallbladder disease. REVIEW OF SYSTEMS He has had no recent headaches or vision difficulties. No dysphagia or odynophagia or heartburn. No chest pains or respiratory difficulties. No cardiac issues. No urinary problems or joint pains or rashes and no unexplained weight loss. PHYSICAL EXAMINATION VITAL SIGNS: On physical examination his temperature is 97.4, pulse 84, respiratory 20, blood pressure 127/80 and his weight is 92.6 kg. GENERAL: He is alert. He is oriented x3. He is anicteric. HEENT: Extraocular motions are intact. LYMPH NODE SURVEY: I appreciate no submandibular, cervical, supraclavicular, axillary or epitrochlear adenopathy. LUNGS: Clear to auscultation. HEART: Heart exam regular rate and rhythm with no gross murmur or gallop. ABDOMEN: Abdominal exam decent bowel sounds with no high-pitched bowel sounds and no appreciable bruit. The abdomen is mildly distended and tympanitic. There is mild diffuse tenderness especially across the low abdomen. No masses or hepatosplenomegaly are noted. No right upper quadrant tenderness and definitely no Olivarez's sign. EXTREMITIES: No pedal edema, Dupuytren's contractures or palmar erythema. LABORATORY FINDINGS Yesterday white count 12.6, hemoglobin 14.5, platelets 143. Today white count 15.3, hemoglobin 13.8, platelets 204. Yesterday sodium 140, potassium 4.0, BUN 9, creatinine 1.1, AST 72, ALT 128, alkaline phosphatase 154, albumin 3.9, lipase 40. Today's sodium 143, potassium 4.2, BUN 9, creatinine 0.86, AST 55, ALT 110, alkaline phosphatase 149, albumin 3.5. Yesterday's bilirubin was 1.4 and today 2.3. INR 1.1. Urinalysis unremarkable. IMAGING STUDIES I reviewed the HIDA scan and the ultrasound and today's MRCP as well as the previous CT scan from a few months ago with Dr. Dalton Allison all in great detail today. There is no obvious gallbladder evident by any the studies. Even the MRCP suggests the cystic duct was present with no evidence of the gallbladder. CT scan and ultrasound revealed no obvious gallbladder and the HIDA scan showed non-filling of the gallbladder. The liver enzyme elevation may have to do with an intrahepatic cholestasis as no evidence of biliary ductal dilation or obvious duct stones. The MRCP shows a normal biliary tree sans a gallbladder. The MRCP does suggest a normal-appearing stomach and duodenum from the midjejunum down to the ileum. The small intestine is markedly dilated to 4.5 cm with a normal-appearing colon. IMPRESSION 1. Abdominal pain seems to be related to a partial or incomplete obstruction likely of the small intestine (likely due to adhesions or Crohn's disease) though no obvious transition zone is evident. The MRCP did not extend down to the pelvis. Some fecal matter was present in the colon but no obvious colonic distension was evident. The biliary tree appears normal with no obvious gallbladder present. At this point we discussed the benefit of bowel rest. There is no urgent need to place an NG tube as his stomach is not distended. If nausea or vomiting develop NG tube placement may be necessary. We will check abdominal x-rays daily to follow up pattern. If symptoms or radiologic studies worsen before they improve, surgical consultation may be recommended. We will follow liver enzymes. There is no indication at this point for any intervention of the biliary tree. He is to remain NPO. MD KACI Perry/KALIN /12:31 PM /3:25 PM MTDD
[2016-09-08 16:00] VITALS: BP 121/79; PULSE 108; RESP 21; TEMP 100.2; O2SAT 95
[2016-09-08] MEDS: ACETAMINOPHEN 325 MG TAB PO PRN (16:51)
[2016-09-08 21:44] VITALS: BP 136/76; PULSE 114; RESP 16; TEMP 99.2; O2SAT 94
[2016-09-09] VITALS (7 sets, daily range): BP systolic 105–145; BP diastolic 69–105; PULSE 97–118; RESP 16–26; TEMP 96.8–101.3; O2SAT 94–99
[2016-09-09] MEDS: MORPHINE SULFATE 4 MG/ML INJ IV PRN ×6 (02:08→20:05)
[2016-09-09] MEDS: SODIUM CHLOR 0.9% 1000 ML INJ 1,000 ML IV SCH ×3 (02:11→22:06)
[2016-09-09] MEDS: DOCUSATE SODIUM 50 MG/SENNA 8.6 MG TAB PO SCH ×2 (08:08→20:05)
[2016-09-09] MEDS: PANTOPRAZOLE SODIUM 40 MG VIAL IV PUSH SCH ×2 (08:08→20:05)
[2016-09-09] MEDS: ONDANSETRON HCL 4 MG/2 ML VIAL IVP PRN (08:09)
--- NOTE | 2016-09-09 08:54 | HHI.GIFU ---
GI Follow-up Note Consult Follow-up Subjective: Patient laying in bed comfortably, no new complaints except now he notices brown urine. Objective: PHYSICAL EXAMINATION: Vitals signs stable No fever HEENT: EOMI ABDOMEN: Mildly distended, mildly high-pitched bowel sounds, tympanic; mildly tender diffusely. BUS GIRL: alert and oriented times three. Available Data (labs, X- Rays, Procedues) : Follow up abd film is being done now. AM labs are pending. ASSESSMENT/PLAN:1. Small intestine obstruction. No flatus or bowel movements at all. The abdomen is more distended, now with high-pitched bowel sounds. Will ask general surgery to see him. 2. Cholestatic liver disease. The HIDA scan showed good biliary flow and the MRCP showed no intra- or extra-hepatic biliary disease. If surgery is to be performed for the bowel obstruction, a liver biopsy should be taken. It was a pleasure seeing Kwame Barnes Jr. Entered by: Ridge Kaminski MD Sep 09, 2016 08:53
[2016-09-09] MEDS: SODIUM CHLORIDE 0.9% FLUSH 10 ML FLUSH IV FLUSH SCH ×2 (09:00→20:06)
[2016-09-09 09:08] LABS: INDIRECT BILIRUBIN 3.2 MG/DL (0.0-0.8); TOTAL BILIRUBIN ADULT 3.6 MG/DL (0.2-1.0)
--- NOTE | 2016-09-09 09:19 | RADHPO ---
EXAM DATE/TIME: 09/09/2016 08:43 [facility] COMPARISON: MRCP W/O CONTRAST, September 08, 2016, 10:17. ABDOMEN FLAT & UPRIGHT, November 21, 2013, 14:18. INDICATIONS : Abdomen pain, obstruction MEDICAL HISTORY : Crohn's disease. cystic fibrosis SURGICAL HISTORY : Colon resection. ENCOUNTER: Subsequent ACUITY: 3 days PAIN SCORE: 9/10 LOCATION: Bilateral abdomen FINDINGS: Supine and upright views of the abdomen were performed. Dilated air-filled loops of small bowel are s een in the left in the abdomen. They measure up to 6 cm in diameter, increased from the prior MRI. Mu ltiple small bowel air-fluid levels on the upright view. No evidence of free air. Paucity of gas in t he colon. CONCLUSION: Dilated air-filled small bowel loops and paucity of bowel gas in the colon. Pattern is suspicious for small bowel obstruction. Ilir Allison MD on September 09, 2016 at 9:09 Board Certified Radiologist. This report was verified electronically.
--- NOTE | 2016-09-09 09:51 | HHI.PR ---
Subjective Remarks in no acute distress. still with worsening abdominal pain. no BM yet. nausea is better with antiemetics. Objective Vitals Vital Signs Date Time Temp Pulse Resp B/P Pulse Ox O2 Delivery O2 Flow Rate FiO2 09/09/16 08:00 96.9 110 24 127/83 96 09/09/16 00:48 98.7 105 16 105/69 99 09/08/16 21:44 99.2 114 16 136/76 94 09/08/16 16:00 100.2 108 21 121/79 95 09/08/16 12:00 98.2 93 20 148/91 97 I/O 09/08/16 09/08/16 09/08/16 09/09/16 09/09/16 09/09/16 07:00 15:00 23:00 07:00 15:00 23:00 # Voids 1 1 1 Result Diagram: 09/08/16 0715 09/08/16 0715 Imaging Last Impressions Abdomen X-Ray 09/09/16 0600 Signed Impressions: Service Date/Time: Friday, September 09, 2016 08:43 - CONCLUSION: Dilated air- filled small bowel loops and paucity of bowel gas in the colon. Pattern is suspicious for small bowel obstruction. Ilir Allison MD Cholangiopancreatography MRI 09/08/16 0000 Signed Impressions: Service Date/Time: Thursday, September 08, 2016 10:17 - CONCLUSION: 1. Fatty-replaced pancreas consistent with the patient's history of cystic fibrosis. 2. Intrahepatic and extrahepatic biliary ducts within normal limits. 3. Gallbladder not identified. Ilir Allison MD ADDENDUM: Multiple dilated loops of small bowel are seen measuring up to 4.5 cm in diameter. Ilir Allison MD Gall Bladder Ultrasound 09/07/16 1659 Signed Impressions: Service Date/Time: Wednesday, September 07, 2016 17:59 - CONCLUSION: 1. There are some limitations to this study. The bowel gas and significant hepatic steatosis limits the evaluation of the gallbladder. I cannot confidently identify the gallbladder and question whether the patient even has a gallbladder. HIDA scan could be considered to further evaluate. 2. Hepatic steatosis. Leonidas Mahmood Jr., MD Objective Remarks GENERAL: This is a well-nourished, well-developed patient, in no apparent distress. CARDIOVASCULAR: Regular rate and regular rhythm without murmurs, gallops, or rubs. RESPIRATORY: Clear to auscultation. Breath sounds equal bilaterally. No wheezes , rales, or rhonchi. GASTROINTESTINAL: Abdomen soft, more distended with generalized tenderness. MUSCULOSKELETAL: Extremities without clubbing, cyanosis, or edema. NEURO: Alert & Oriented x4 to person, place, time, situation. Moves all ext x4 Medications and IVs Current Medications Morphine Sulfate (Morphine Inj) 4 mg ONCE ONCE IV Last administered on 17:23; Start 09/07/16 at 17:00; Stop 09/07/16 at 17:01; Status DC Ondansetron HCl 4 mg 4 mg ONCE ONCE IVP Last administered on 09/07/16 17:22; Start 09/07/16 at 17:00; Stop 09/07/16 at 17:01; Status DC Sodium Chloride (NS 1000 ml Inj) 1,000 ml @ 999 mls/hr BOLUS ONCE IV Last administered on 09/07/16 17:22; Start 09/07/16 at 17:00; Stop 09/07/16 at 18:00; Status DC Pantoprazole Sodium 40 mg 40 mg Q12HR IV PUSH Last administered on 09/09/16 08: 08; Start 09/07/16 at 21:00 Sodium Chloride (NS 1000 ml Inj) 1,000 ml @ 100 mls/hr Q10H IV Last administered on 09/09/16 02:11; Start 09/07/16 at 20:06 Sodium Chloride (NS Flush) 2 ml UNSCH PRN IV FLUSH FLUSH AFTER USING IV ACCESS ; Start 09/07/16 at 20:15 Sodium Chloride (NS Flush) 2 ml BID IV FLUSH Last administered on 09/08/16 08: 06; Start 09/07/16 at 21:00 Ondansetron HCl (Zofran Inj) 4 mg Q6H PRN IVP NAUSEA OR VOMITING Last administered on 09/09/16 08:09; Start 09/07/16 at 20:15 Acetaminophen (Tylenol) 650 mg Q6H PRN PO FEVER Last administered on 09/08/16 16:51; Start 09/07/16 at 20:15 Morphine Sulfate (Morphine Inj) 2 mg Q3H PRN IV Pain 6-10 Last administered on 09/09/16 08:09; Start 09/07/16 at 20:15 Oxycodone HCl (Roxicodone) 5 mg Q4H PRN PO PAIN SCALE 3 TO 5 Last administered on 09/08/16 02:02; Start 09/07/16 at 20:15 Senna/Docusate Sodium (Minda-Colace) 1 tab BID PO Last administered on 09/09/16 08:08; Start 09/07/16 at 21:00 Magnesium Hydroxide (Milk Of Magnesia Liq) 30 ml Q12H PRN PO MILD - MODERATE CONSTIPATION; Start 09/07/16 at 20:15 Sennosides (Senokot) 17.2 mg Q12H PRN PO MODERATE - SEVERE CONSTIPATION; Start 09/07/16 at 20:15 Bisacodyl (Dulcolax Supp) 10 mg DAILY PRN RECTAL SEVERE CONSITIPATION; Start at 20:15 Lactulose (Lactulose Liq) 30 ml DAILY PRN PO SEVERE CONSITIPATION; Start at 20:15 Hydromorphone HCl (Dilaudid Pf Inj) 0.5 mg ONCE ONCE IVP Last administered on 09/07/16 21:17; Start 09/07/16 at 20:45; Stop 09/07/16 at 20:46; Status DC Ondansetron HCl (Zofran Inj) 4 mg ONCE ONCE IV Last administered on 09/07/16 21:13; Start 09/07/16 at 20:45; Stop 09/07/16 at 20:46; Status DC Lorazepam (Ativan Inj) 1 mg ONCE ONCE IV PUSH Last administered on 09/08/16 09 :59; Start 09/08/16 at 09:00; Stop 09/08/16 at 09:01; Status DC A/P Assessment and Plan A/P - small bowel obstruction with history of Crohn's disease and cystic fibrosis and colon resection keep NPO and continue with supportive care with IV fluid , pain control and antiemetics GI consult appreciated and d/w today; general surgery will be consulted. -elevated LFT's MRCP with normal intrahepatic and extrahepatic biliary ducts. d/w ; if the the surgery to be performed live biopsy to be done at the time. continue to monitor the LFT's. Jung Mcallister MD Sep 09, 2016 09:51
[2016-09-09] MEDS ORDERED: IOHEXOL 350 MG/ML 10 ML VIAL (for RAD DIAG) IV ONE (10:07)
--- NOTE | 2016-09-09 10:26 | RADHPO ---
EXAM DATE/TIME: 09/09/2016 09:50 [facility] COMPARISON: CT ABDOMEN & PELVIS W CONTRAST, November 07, 2013, 23:17. INDICATIONS : Abdominal distention with diffuse abdominal pain. Evaluate for obstruction. Recent colonoscopy one w nondalton ago. IV CONTRAST: 95 cc Omnipaque 350 (iohexol) IV ORAL CONTRAST: No oral contrast ingested. RADIATION DOSE: 18.90 CTDIvol (mGy) MEDICAL HISTORY : Crohn's disease. Cystic fibrosis. SURGICAL HISTORY : Bowel resection. ENCOUNTER: Initial ACUITY: 3 days PAIN SCALE: 9/10 LOCATION: Bilateral abdomen/pelvis TECHNIQUE: Volumetric scanning of the abdomen and pelvis was performed. Using automated exposure control and ad justment of the mA and/or kV according to patient size, radiation dose was kept as low as reasonably achievable to obtain optimal diagnostic quality images. FINDINGS: LOWER LUNGS: The visualized lower lungs are clear. LIVER: Diffuse hepatic steatosis. No focal masses identified. No evidence of ductal dilatation. Gallbladder again not identified. No clips are seen in the gallbladder fossa. SPLEEN: Normal size without lesion. PANCREAS: Diffuse fatty replacement of the pancreas consistent with the history of cystic fibrosis. KIDNEYS: 3 mm upper pole right renal calculus. 3 mm anterior midpole right renal calculus. 2 mm posterior midp ole right renal calculus. No evidence of hydronephrosis. ADRENAL GLANDS: Within normal limits. VASCULAR: There is no aortic aneurysm. BOWEL/MESENTERY: Multiple dilated loops of small bowel with multiple air-fluid levels. Small bowel measures up to 5.3 cm in diameter. The colon is nondistended. Scattered stool and gas in the colon. There is stool-like material in the distal small bowel. The colon appears truncated with apparent absence of the cecum, l ikely postsurgical. Small amount of ascites is seen in all 4 quadrants. No free air. ABDOMINAL WALL: Within normal limits. RETROPERITONEUM: There is no lymphadenopathy. BLADDER: No wall thickening or mass. REPRODUCTIVE: Within normal limits. INGUINAL: There is no lymphadenopathy or hernia. MUSCULOSKELETAL: Within normal limits for patient age. CONCLUSION: 1. Diffuse small bowel dilatation and numerous small bowel air fluid levels. Colon is normal diameter . Findings are suspicious for distal small bowel obstruction. There is prominent stool-like material in the distal small bowel. An abrupt transition point is not identified. Likely prior hemicolectomy w ith apparent absence of the ascending colon. 2. Small amount of free fluid in all 4 quadrants. No evidence of free air. 3. Hepatic steatosis. 4. Diffuse fatty replacement of the pancreas consistent with the history of cystic fibrosis. Ilir Allison MD on September 09, 2016 at 10:09 Board Certified Radiologist. This report was verified electronically.
[2016-09-09] MEDS: LEVOFLOXACIN 750 MG PREMIX INJ 150 ML IV SCH (12:45)
--- NOTE | 2016-09-09 13:17 | MB ---
cc: MELY RUIZ MD DATE OF CONSULTATION: 09/09/2016 REASON FOR CONSULTATION: Small bowel obstruction, elevated LFTs, Crohn disease HISTORY OF PRESENT ILLNESS This is a 30-year-old male with a history of Crohn disease and cystic fibrosis who presented to the hospital with abdominal pain. He relates that as a he underwent laparotomy for bowel obstruction related to cystic fibrosis including bowel resection. As a teenager he underwent two separate laparotomies related to Crohn's disease both with bowel resections. He is not sure exactly what portions of the bowel have been resected in the past. The patient has been on no medications for Crohn disease for about 10 years. He occasionally has mild flares which resolve without medication. He had recently been having some mild intermittent right upper quadrant pain and just underwent a HIDA scan as an outpatient. Three days ago he developed mild abdominal pain which then became persistent and more severe and was also associated with nausea and vomiting. He then presented to the emergency department. He has had no flatus or bowel movement since that time and the pain is persistent and severe. He describes it as diffuse, maybe slightly worse in the upper abdomen. He is not currently been vomiting recently. During evaluation the patient was noted to have leukocytosis, 12,000 on admission, 15,000 yesterday. CBC was not drawn today. Liver function enzymes have been elevated and the bilirubin is climbing from 1.4 on admission to 3.6 now. He underwent a gallbladder ultrasound which was somewhat unremarkable and did not identify a gallbladder. MRCP was performed showing a fatty replaced pancreas and normal diameter of intra and extrahepatic biliary tree. I did order a CT scan of the abdomen and pelvis which was performed today and revealed multiple dilated loops of small bowel with air-fluid levels and nondistended colon. There is some feculent material in the distal small bowel. There does not appear to be cecum. There is some mild ascites in all four quadrants. I did review the images personally and discussed the CT with Dr. Ilir Allison. There is not any obvious transition point. There does appear to be an anastomosis between small bowel and colon with a surgically removed cecum. There is feculent material in the distal portion of the small bowel prior to the anastomosis. There is, however, some stool and air in the colon as well. PAST MEDICAL HISTORY: Crohn's disease. Cystic fibrosis. PAST SURGICAL HISTORY: As noted above. HOME MEDICATIONS: No prescriptions. ALLERGIES: None known. SOCIAL HISTORY: No alcohol, tobacco or drug use. FAMILY HISTORY: Noncontributory. REVIEW OF SYSTEMS: A 10 point review of systems is negative except as mentioned in the HPI. PHYSICAL EXAMINATION: General: Pleasant well-developed, well-nourished 30-year-old male. He appears slightly uncomfortable but is certainly not in distress. Vital signs: Temperature is 96.9, heart rate 110, respirations 18, blood pressure 127/83. Head: Normocephalic, atraumatic. Eyes: Pupils equal, react to light bilaterally. ENT: Moist oral mucosa. Lungs: Clear to auscultation bilaterally with no wheezing or rhonchi. Cardiovascular: Sinus tachycardia. Abdomen: He has a large upper abdominal transverse scar as well as midline laparotomy scar. Diffuse tenderness to palpation worse in the upper abdomen with mild rebound tenderness in the upper abdomen. He is fairly distended. IMPRESSION AND PLAN A 30 year-old male with complicated surgical history related to cystic fibrosis as well as Crohn disease. He has had three separate bowel resections in the past. He currently appears to have an at least high grade partial small-bowel obstruction. I did not see a transition point and it is unclear whether this is related to adhesions from previous surgery versus possibly impaction of feculent material in the distal small bowel, possibly related to cystic fibrosis. He also has increasing liver function enzymes of unknown etiology. His exam is fairly concerning, although I do not think he requires immediate operative intervention. I would like to attempt to give him a chance at resolution without an operation as the operation is somewhat high risk in this patient due to multiple previous surgeries. Certainly if we can avoid any bowel resection that would be optimal. At this point I would like to transfer him to the main hospital for likely need for either surgical or interventional radiology intervention which could include a liver biopsy. I did start him on Levaquin and Flagyl due to the increasing white blood counts associated with both the obstructive findings and the elevated LFTs. Thank you for the consultation. MD ANTOINE Beaver/SHEILA /12:21 PM /1:05 PM
[2016-09-09 13:45] LABS: AUTOMATED NEUTROPHIL # 2.4 TH/MM3 (1.8-7.7); BASOPHIL % 0.1 % (0.0-2.0); EOSINOPHIL # 0.1 TH/MM3 (0-0.4); EOSINOPHIL % 1.9 % (0.0-4.0); LYMPHOCYTE # 0.8 TH/MM3 (1.0-4.8); MEAN CELL VOLUME 89.6 FL (80.0-100.0); MEAN CORPUSCULAR HEMOGLOBIN 30.8 PG (27.0-34.0); MEAN CORPUSCULAR HGB CONC 34.4 % (32.0-36.0); MONO % 30.1 % (0.0-8.0); NEUT % 51.9 % (16.0-70.0); PLATELET COUNT 173 TH/MM3 (150-450); RED BLOOD COUNT 4.35 MIL/MM3 (4.50-5.90); WHITE BLOOD COUNT 4.7 TH/MM3 (4.0-11.0)
[2016-09-09 13:55] LABS: HEMO FLAGS AUTO DIFF
[2016-09-09] MEDS: metroNIDAZOLE 500 MG INJ 100 ML IV SCH ×2 (14:24→20:06)
[2016-09-09 14:28] LABS: BANDS 18 % (0-6); EOSINOPHILS 1 % (0-4); POLYS (SEG NEUTROPHILS) 25 % (16-70); SCAN/DIFF FINAL DIFF MANUAL; WBC DIFF SAMPLE 100
[2016-09-09] MEDS: ACETAMINOPHEN 325 MG TAB PO PRN (16:15)
[2016-09-10 00:30] VITALS: BP 122/72; PULSE 109; RESP 17; TEMP 99.4; O2SAT 95
[2016-09-10] MEDS: metroNIDAZOLE 500 MG INJ 100 ML IV SCH ×4 (00:35→21:09)
[2016-09-10] MEDS: MORPHINE SULFATE 4 MG/ML INJ IV PRN ×6 (00:35→21:09)
[2016-09-10 05:30] LABS: HEMATOCRIT 33.8 % (39.0-51.0); MEAN CELL VOLUME 90.1 FL (80.0-100.0); MEAN CORPUSCULAR HEMOGLOBIN 31.9 PG (27.0-34.0); MEAN CORPUSCULAR HGB CONC 35.5 % (32.0-36.0); PLATELET COUNT 166 TH/MM3 (150-450); RED BLOOD COUNT 3.76 MIL/MM3 (4.50-5.90); WHITE BLOOD COUNT 5.1 TH/MM3 (4.0-11.0)
[2016-09-10 05:33] LABS: HEMO FLAGS AUTO DIFF
[2016-09-10 05:49] LABS: BICARBONATE 26.3 MEQ/L (21.0-32.0); POTASSIUM 3.1 MEQ/L (3.5-5.1)
[2016-09-10 05:52] LABS: INDIRECT BILIRUBIN 2.4 MG/DL (0.0-0.8); TOTAL BILIRUBIN ADULT 2.9 MG/DL (0.2-1.0)
[2016-09-10 07:45] LABS: BANDS 32 % (0-6); EOSINOPHILS 3 % (0-4); NEUTROPHIL # MANUAL DIFF 2.3 TH/MM3 (1.8-7.7); PLATELET ESTIMATE SMEAR NORMAL (NORMAL); PLATELET MORPHOLOGY NORMAL (NORMAL); POLYS (SEG NEUTROPHILS) 14 % (16-70); WBC DIFF SAMPLE 100
[2016-09-10 07:46] LABS: SCAN/DIFF FINAL DIFF MANUAL
[2016-09-10 08:00] VITALS: BP 109/63; PULSE 96; RESP 18; TEMP 97.7; O2SAT 93
[2016-09-10] MEDS ORDERED: DIATRIZOATE MEGLUM/DIATRIZOATE SOD 120 ML BTL (for RAD DIAG) PO ONE (08:20)
--- NOTE | 2016-09-10 09:19 | HHI.GIFU ---
GI Follow-up Note Consult Follow-up pt down in radiology will see later today. It was a pleasure seeing Kwame Barnes Jr. Thank you for this consult. Entered by: Neha Garcia MD Sep 10, 2016 09:19
[2016-09-10] MEDS: PANTOPRAZOLE SODIUM 40 MG VIAL IV PUSH SCH ×2 (10:20→21:09)
[2016-09-10] MEDS: SODIUM CHLORIDE 0.9% FLUSH 10 ML FLUSH IV FLUSH SCH ×2 (10:21→21:00)
[2016-09-10] MEDS: DOCUSATE SODIUM 50 MG/SENNA 8.6 MG TAB PO SCH ×2 (10:24→21:00)
[2016-09-10] MEDS: SODIUM CHLOR 0.9% 1000 ML INJ 1,000 ML IV SCH ×2 (10:27→18:00)
[2016-09-10 12:00] VITALS: BP 117/75; PULSE 96; RESP 18; TEMP 97.9; O2SAT 94
--- NOTE | 2016-09-10 13:39 | RADRPT ---
EXAM DATE/TIME: 09/10/2016 08:03 [facility] COMPARISON: No previous studies available for comparison. INDICATIONS : Obstruction. FLUORO TIME: 0 minutes IMAGE COUNT: 12 CONTRAST: MD Cervantes IMAGING TIME(S): 15 min, 30 min, 45 min, 1 hr, 3 hr MEDICAL HISTORY : Crohn's disease. Cystic fibrosis. SURGICAL HISTORY : Small bowel resections, several obstructions in past. ENCOUNTER: Initial ACUITY: 3 days PAIN SCORE: 8/10 LOCATION: Bilateral upper quadrant abdomen. FINDINGS: There is minimal distention of proximal small bowel when compared to distal. Point of obstruction or transition is not identified. Small bowel transit time is three hours. CONCLUSION: 1. There is no evidence for small bowel obstruction. 2. I see no obvious Crohn's involvement. MR enterography would be of benefit on an outpatient basis to further evaluate the small bowel for Crohn's pathology. Gavin Lundberg MD FACR on September 10, 2016 at 13:32 Board Certified Radiologist. This report was verified electronically.
[2016-09-10] MEDS: LEVOFLOXACIN 750 MG PREMIX INJ 150 ML IV SCH (13:52)
--- NOTE | 2016-09-10 14:01 | HHI.PR ---
Subjective Remarks Patient reports he is feeling better. He had two loose bowel movement. Still report abdomen is "sore". Minimal nausea. No vomiting. He will like to try a diet. Small bowel series negative for obstruction. Objective Vitals Vital Signs Date Time Temp Pulse Resp B/P Pulse Ox O2 Delivery O2 Flow Rate FiO2 09/10/16 12:00 97.9 96 18 117/75 94 09/10/16 08:00 97.7 96 18 109/63 93 09/10/16 00:30 99.4 109 17 122/72 95 09/09/16 20:00 99.3 109 18 118/72 96 09/09/16 17:27 16 09/09/16 17:23 100.8 09/09/16 17:23 18 09/09/16 16:20 101.3 118 24 128/82 96 09/09/16 16:00 101.3 118 24 128/82 96 I/O 09/09/16 09/09/16 09/09/16 09/10/16 09/10/16 09/10/16 07:00 15:00 23:00 07:00 15:00 23:00 Intake Total 0 ml 712 ml Balance 0 ml 712 ml Intake Oral 0 ml 240 ml IV Total 472 ml # Voids 1 10 4 # Bowel Movements 1 Result Diagram: 09/10/16 0410 09/10/16 0410 Imaging Last Impressions Abdomen X-Ray 09/09/16 0600 Signed Impressions: Service Date/Time: Friday, September 09, 2016 08:43 - CONCLUSION: Dilated air- filled small bowel loops and paucity of bowel gas in the colon. Pattern is suspicious for small bowel obstruction. Ilir Allison MD Abdomen/Pelvis CT 09/09/16 0000 Signed Impressions: Service Date/Time: Friday, September 09, 2016 09:50 - CONCLUSION: 1. Diffuse small bowel dilatation and numerous small bowel air fluid levels. Colon is normal diameter. Findings are suspicious for distal small bowel obstruction. There is prominent stool-like material in the distal small bowel. An abrupt transition point is not identified. Likely prior hemicolectomy with apparent absence of the ascending colon. 2. Small amount of free fluid in all 4 quadrants. No evidence of free air. 3. Hepatic steatosis. 4. Diffuse fatty replacement of the pancreas consistent with the history of cystic fibrosis. Ilir Allison MD Cholangiopancreatography MRI 09/08/16 0000 Signed Impressions: Service Date/Time: Thursday, September 08, 2016 10:17 - CONCLUSION: 1. Fatty-replaced pancreas consistent with the patient's history of cystic fibrosis. 2. Intrahepatic and extrahepatic biliary ducts within normal limits. 3. Gallbladder not identified. Ilir Allison MD ADDENDUM: Multiple dilated loops of small bowel are seen measuring up to 4.5 cm in diameter. Ilir Allison MD Gall Bladder Ultrasound 09/07/16 1659 Signed Impressions: Service Date/Time: Wednesday, September 07, 2016 17:59 - CONCLUSION: 1. There are some limitations to this study. The bowel gas and significant hepatic steatosis limits the evaluation of the gallbladder. I cannot confidently identify the gallbladder and question whether the patient even has a gallbladder. HIDA scan could be considered to further evaluate. 2. Hepatic steatosis. Leonidas Mahmood Jr., MD Objective Remarks GENERAL: This is a well-nourished, well-developed patient, in no apparent distress. CARDIOVASCULAR: Normal rate and regular rhythm without murmurs, gallops, or rubs. RESPIRATORY: Good respiratory efforts. Breath sounds equal and clear to auscultation bilaterally. GASTROINTESTINAL: Abdomen soft, non-distended. Diffusely tender to palpation. Normal active bowel sounds MUSCULOSKELETAL: Extremities without cyanosis, or edema. NEURO: Alert & Oriented x4 to person, place, time, situation. Moves all ext x4 PSYCH: Appropriate mood and affect. A/P Problem List: (1) Intractable abdominal pain ICD Code: R10.9 Status: Acute (2) Liver enzyme elevation ICD Code: R74.8 Status: Acute Assessment and Plan 30-year-old male admitted with: SBO in a patient with history of Crohn's disease and cystic fibrosis and colon resection : Patient had 2 loose/watery bowel movement today. Small bowel studies did not reveal an obstruction currently. ?resolved - Appreciate general surgery and GI following. Symptoms improving. Advance to clear liquid diet. - Continue supportive care with IV fluid and pain control Further plans per GI and general surgery. On Levaquin and Flagyl per Gen Surgery. Cholestatic liver disease: MRCP with normal intrahepatic and extrahepatic biliary ducts. Could be related to cystic fibrosis. Review of records shows chronically elevated LFTs. AST and ALT normalized. -GI following. If there is any surgery, can consider liver biopsy at the time. Hypokalemia: Replace and monitor. Check mag. GI prophylaxis: PPI. Stool softener. DVT PPx: SCDs. Claudy Durbin MD Sep 10, 2016 14:01
[2016-09-10] MEDS ORDERED: POTASSIUM CHLORIDE 10 MEQ CONTROLLED RELEASE TAB PO ONE (15:00)
--- NOTE | 2016-09-10 15:57 | HHI.PR ---
Subjective Subjective Notes His pain is persistent. He had SBFT this am which did not show bowel obstruction. He has had many liquid bowel movts since then. Objective Vitals/I&O Vital Signs Date Time Temp Pulse Resp B/P Pulse Ox O2 Delivery O2 Flow Rate FiO2 09/10/16 12:00 97.9 96 18 117/75 94 09/07/16 22:50 Room Air Labs Laboratory Tests Test 09/10/16 04:10 White Blood Count 5.1 Red Blood Count 3.76 Hemoglobin 12.0 Hematocrit 33.8 Mean Corpuscular Volume 90.1 Mean Corpuscular Hemoglobin 31.9 Mean Corpuscular Hemoglobin 35.5 Concent Red Cell Distribution Width 13.0 Platelet Count 166 Mean Platelet Volume 9.8 Neutrophils (%) (Auto) Lymphocytes (%) (Auto) Monocytes (%) (Auto) Eosinophils (%) (Auto) Basophils (%) (Auto) Neutrophils # (Auto) Lymphocytes # (Auto) Monocytes # (Auto) Eosinophils # (Auto) Basophils # (Auto) CBC Comment AUTO DIFF Differential Total Cells 100 Counted Neutrophils % (Manual) 14 Band Neutrophils % 32 Lymphocytes % 22 Monocytes % 29 Eosinophils % 3 Neutrophils # (Manual) 2.3 Differential Comment FINAL DIFF MANUAL Platelet Estimate NORMAL Platelet Morphology Comment NORMAL Red Cell Morphology Comment NORMAL Sodium Level 138 Potassium Level 3.1 Chloride Level 105 Carbon Dioxide Level 26.3 Anion Gap 7 Blood Urea Nitrogen 10 Creatinine 0.72 Estimat Glomerular Filtration 127 Rate Random Glucose 99 Calcium Level 7.7 Total Bilirubin 2.9 Direct Bilirubin 0.5 Indirect Bilirubin 2.4 Aspartate Amino Transf 25 (AST/SGOT) Alanine Aminotransferase 59 (ALT/SGPT) Alkaline Phosphatase 100 Total Protein 6.1 Albumin 2.6 Date/Time Procedure Status Source Growth 09/07/16 16:46 Urine Culture - Final Complete Urine Clean Catch 10-50,000 CFU/ML MIXED GRAM POSITIVE ... Narrative Exam NAD Abd: moderate distention, ? rebound ttp in LLQ and upper abdomen, mod-severe tenderness A/P Assessment and Plan 30 yo M with h/o Crohn's and cystic fibrosis with abdominal pain SBFT does not show obstruction. He is fairly tender but will continue nonoperative management. Ok for clears. Etiology of his pain and ileus/ obstruction is unclear. LFTs remain elevated. Cont IV antitbiotics. Jean Tafoya MD Sep 10, 2016 15:57
[2016-09-10 16:00] VITALS: BP 111/64; PULSE 95; RESP 18; TEMP 99.1; O2SAT 96
--- NOTE | 2016-09-10 16:12 | HHI.GIFU ---
GI Follow-up Note Consult Follow-up Subjective: Patient laying in bed comfortably, still c/o of abdo pain mid and ruq. no fever or chlls had normal upper GI. Objective: PHYSICAL EXAMINATION: Vitals signs stable No fever HEENT: Pupils round and reactive to light; normocephalic; atraumatic; no jaundice. Throat is clear. NECK: Neck is supple, no JVD, no lymphadenopathy. CHEST: Chest is clear to auscultation and percussion. CARDIAC: Regular rate and rhythm with no murmur gallop or rubs. ABDOMEN: Soft, nondistended, mild tender; no hepatosplenomegaly; bowel sounds are present in all four quadrants, abdo scars EXTREMITIES: No clubbing, cyanosis, or edema. SKIN: Normal; no rash; no jaundice. WASH PLANT OPERATOR: No focal deficits; alert and oriented times three. Available Data (labs, X- Rays, Procedures: reviewed. ASSESSMENT/PLAN: 1. PSBO 2. elevated lfts. - cholestatic pattern unclear etiology ? chronic paola. Pt states his last U/S in 2012 showed small contracted Gb. Most recent scans failed to visualize gb. PLAN: 1. cont ivf 2. IV abx 3. bowel rest 4. surgery following. It was a pleasure seeing Kwame Barnes Jr. Thank you for this consult. Entered by: Neha Garcia MD Sep 10, 2016 16:12
[2016-09-10 20:00] VITALS: BP 118/75; PULSE 97; RESP 16; TEMP 99.3; O2SAT 97
[2016-09-11] VITALS: BP 103/56; PULSE 88; RESP 18; TEMP 98.4; O2SAT 95
[2016-09-11] MEDS: metroNIDAZOLE 500 MG INJ 100 ML IV SCH ×4 (01:40→19:40)
[2016-09-11] MEDS: MORPHINE SULFATE 4 MG/ML INJ IV PRN ×6 (01:40→23:50)
[2016-09-11 05:20] LABS: MEAN CORPUSCULAR HEMOGLOBIN 31.5 PG (27.0-34.0); PLATELET COUNT 175 TH/MM3 (150-450); RED BLOOD COUNT 3.67 MIL/MM3 (4.50-5.90); WHITE BLOOD COUNT 6.7 TH/MM3 (4.0-11.0)
[2016-09-11 05:57] LABS: BICARBONATE 26.8 MEQ/L (21.0-32.0); POTASSIUM 3.2 MEQ/L (3.5-5.1)
[2016-09-11] MEDS: PANTOPRAZOLE SODIUM 40 MG VIAL IV PUSH SCH ×2 (07:34→19:40)
[2016-09-11] MEDS: DOCUSATE SODIUM 50 MG/SENNA 8.6 MG TAB PO SCH ×2 (07:34→19:47)
[2016-09-11] MEDS: SODIUM CHLORIDE 0.9% FLUSH 10 ML FLUSH IV FLUSH SCH ×2 (07:35→19:47)
[2016-09-11 08:00] VITALS: BP 108/69; PULSE 82; RESP 18; TEMP 97.4; O2SAT 97
[2016-09-11] MEDS ORDERED: POTASSIUM CHLORIDE 20 MEQ CONTROLLED RELEASE TAB PO ONE ×2 (09:00→14:00)
--- NOTE | 2016-09-11 09:23 | HHI.PR ---
Subjective Subjective Notes Still has pain but colby some liquids and pain is slightly improved. Having BM's and flatus. Objective Vitals/I&O Vital Signs Date Time Temp Pulse Resp B/P Pulse Ox O2 Delivery O2 Flow Rate FiO2 09/11/16 08:00 97.4 82 18 108/69 97 09/07/16 22:50 Room Air Labs Laboratory Tests Test 09/11/16 03:23 White Blood Count 6.7 Red Blood Count 3.67 Hemoglobin 11.6 Hematocrit 33.0 Mean Corpuscular Volume 90.0 Mean Corpuscular Hemoglobin 31.5 Mean Corpuscular Hemoglobin 35.0 Concent Red Cell Distribution Width 13.0 Platelet Count 175 Mean Platelet Volume 9.8 Sodium Level 142 Potassium Level 3.2 Chloride Level 110 Carbon Dioxide Level 26.8 Anion Gap 5 Blood Urea Nitrogen 7 Creatinine 0.63 Estimat Glomerular Filtration 148 Rate Random Glucose 92 Calcium Level 7.8 Date/Time Procedure Status Source Growth 09/07/16 16:46 Urine Culture - Final Complete Urine Clean Catch 10-50,000 CFU/ML MIXED GRAM POSITIVE ... Narrative Exam NAD Abd: moderate distention, improving; mod diffuse ttp, better than yesterday A/P Assessment and Plan 30 yo M with h/o Crohn's and cystic fibrosis with abdominal pain resolving obstruction, etiology unclear. Pain is improving. Continue clears today. Michelet,Jean OCONNELL Sep 11, 2016 09:23
[2016-09-11] MEDS: POTASSIUM CHLOR 20 MEQ PREMIX 100 ML IV SCH ×2 (09:27→11:23)
--- NOTE | 2016-09-11 09:43 | HHI.GIFU ---
GI Follow-up Note Consult Follow-up Subjective: Patient laying in bed comfortably, no new complaints, abdo pain improving. loose bm Objective: PHYSICAL EXAMINATION: Vitals signs stable No fever HEENT: Pupils round and reactive to light; normocephalic; atraumatic; no jaundice. Throat is clear. NECK: Neck is supple, no JVD, no lymphadenopathy. CHEST: Chest is clear to auscultation and percussion. CARDIAC: Regular rate and rhythm with no murmur gallop or rubs. ABDOMEN: Soft, nondistended, nontender; no hepatosplenomegaly; bowel sounds are present in all four quadrants. EXTREMITIES: No clubbing, cyanosis, or edema. SKIN: Normal; no rash; no jaundice. BAG PATCHER: No focal deficits; alert and oriented times three. Available Data (labs, X- Rays, Procedues) : ASSESSMENT/PLAN: 1. PSBO tolerating CLD 2. Elevated LFTs. - cholestatic pattern unclear etiology ? chronic cholecystitis. Pt states his last U/S in 2012 showed small contracted Gb. Most recent scans (HIDA) failed to visualize gb. PLAN: 1. cont ivf 2. IV abx 3. on clear liquid diet 4. surgery following. 5. Check am LFTs trend. It was a pleasure seeing Kwame Barnes Jr. Thank you for this consult. Entered by: Neha Garcia MD Sep 11, 2016 09:43
[2016-09-11 09:59] LABS: BANDS 29 % (0-6); EOSINOPHILS 3 % (0-4); NEUTROPHIL # MANUAL DIFF 4.2 TH/MM3 (1.8-7.7); PLATELET ESTIMATE SMEAR NORMAL (NORMAL); PLATELET MORPHOLOGY NORMAL (NORMAL); POLYS (SEG NEUTROPHILS) 34 % (16-70); SCAN/DIFF FINAL DIFF MANUAL; TOXIC GRANULATION 2+ (NORMAL); WBC DIFF SAMPLE 100
[2016-09-11 10:25] LABS: ALT (GPT) 48 U/L (12-78); ANION GAP 8 MEQ/L (5-15); AST (GOT) 23 U/L (15-37); BICARBONATE 24.7 MEQ/L (21.0-32.0); BLOOD UREA NITROGEN 6 MG/DL (7-18); CHLORIDE 109 MEQ/L (98-107); GLOMERULAR FILTRATION RATE 133 ML/MIN (>89); POTASSIUM 3.2 MEQ/L (3.5-5.1); SODIUM (NA) 142 MEQ/L (136-145)
[2016-09-11 10:28] LABS: ALKALINE PHOSPHATASE 85 U/L (45-117); TOTAL BILIRUBIN ADULT 1.4 MG/DL (0.2-1.0)
[2016-09-11] MEDS: LEVOFLOXACIN 750 MG PREMIX INJ 150 ML IV SCH (11:24)
[2016-09-11 12:00] VITALS: BP 112/69; PULSE 77; RESP 18; TEMP 98; O2SAT 95
--- NOTE | 2016-09-11 14:42 | HHI.PR ---
Subjective Remarks feels better today, still have some abdominal pain, no nausea or vomiting, has BMs Objective Vitals Vital Signs Date Time Temp Pulse Resp B/P Pulse Ox O2 Delivery O2 Flow Rate FiO2 09/11/16 12:00 98.0 77 18 112/69 95 09/11/16 08:00 97.4 82 18 108/69 97 09/11/16 00:00 98.4 88 18 103/56 95 09/10/16 20:00 99.3 97 16 118/75 97 09/10/16 18:05 16 09/10/16 16:00 99.1 95 18 111/64 96 I/O 09/10/16 09/10/16 09/10/16 09/11/16 09/11/16 09/11/16 07:00 15:00 23:00 07:00 15:00 23:00 Intake Total 712 ml 0 ml 1291 ml 1159 ml Balance 712 ml 0 ml 1291 ml 1159 ml Intake Oral 240 ml 0 ml 620 ml 360 ml IV Total 472 ml 671 ml 799 ml # Voids 4 6 3 2 # Bowel Movements 1 4 0 0 Result Diagram: 09/11/16 0323 09/11/16 0323 Imaging Last Impressions Small Bowel X-Ray 09/10/16 0000 Signed Impressions: Service Date/Time: Saturday, September 10, 2016 08:03 - CONCLUSION: 1. There is no evidence for small bowel obstruction. 2. I see no obvious Crohn's involvement. MR enterography would be of benefit on an outpatient basis to further evaluate the small bowel for Crohn's pathology. Gavin Lundberg MD FACR Abdomen X-Ray 09/09/16 0600 Signed Impressions: Service Date/Time: Friday, September 09, 2016 08:43 - CONCLUSION: Dilated air- filled small bowel loops and paucity of bowel gas in the colon. Pattern is suspicious for small bowel obstruction. Ilir Allison MD Abdomen/Pelvis CT 09/09/16 0000 Signed Impressions: Service Date/Time: Friday, September 09, 2016 09:50 - CONCLUSION: 1. Diffuse small bowel dilatation and numerous small bowel air fluid levels. Colon is normal diameter. Findings are suspicious for distal small bowel obstruction. There is prominent stool-like material in the distal small bowel. An abrupt transition point is not identified. Likely prior hemicolectomy with apparent absence of the ascending colon. 2. Small amount of free fluid in all 4 quadrants. No evidence of free air. 3. Hepatic steatosis. 4. Diffuse fatty replacement of the pancreas consistent with the history of cystic fibrosis. Ilir Allison MD Cholangiopancreatography MRI 09/08/16 0000 Signed Impressions: Service Date/Time: Thursday, September 08, 2016 10:17 - CONCLUSION: 1. Fatty-replaced pancreas consistent with the patient's history of cystic fibrosis. 2. Intrahepatic and extrahepatic biliary ducts within normal limits. 3. Gallbladder not identified. Ilir Allison MD ADDENDUM: Multiple dilated loops of small bowel are seen measuring up to 4.5 cm in diameter. Ilir Allison MD Gall Bladder Ultrasound 09/07/16 1659 Signed Impressions: Service Date/Time: Wednesday, September 07, 2016 17:59 - CONCLUSION: 1. There are some limitations to this study. The bowel gas and significant hepatic steatosis limits the evaluation of the gallbladder. I cannot confidently identify the gallbladder and question whether the patient even has a gallbladder. HIDA scan could be considered to further evaluate. 2. Hepatic steatosis. Leonidas Mahmood Jr., MD Objective Remarks GENERAL: This is a well-nourished, well-developed patient, in no apparent distress. CARDIOVASCULAR: Normal rate and regular rhythm without murmurs RESPIRATORY: Good respiratory efforts. Breath sounds equal and clear to auscultation bilaterally. GASTROINTESTINAL: Abdomen soft, mild distension noted. discomfort to deep palpation in epigastric area and upper quadrants. No guarding MUSCULOSKELETAL: Extremities without edema. NEURO: Alert & Oriented x4 to person, place, time, situation. Moves all ext x4 PSYCH: Appropriate mood and affect. A/P Problem List: (1) Intractable abdominal pain ICD Code: R10.9 Status: Acute (2) Liver enzyme elevation ICD Code: R74.8 Status: Acute Assessment and Plan SBO in a patient with history of Crohn's disease and cystic fibrosis and colon resection : Patient had 2 loose/watery bowel movement today. Small bowel studies did not reveal an obstruction currently. resolving - Appreciate general surgery and GI following. Symptoms improving. continue clear liquid diet per sx. - Continue supportive care with IV fluid and pain control Further plans per GI and general surgery. On Levaquin and Flagyl per Gen Surgery. Cholestatic liver disease: MRCP with normal intrahepatic and extrahepatic biliary ducts. Could be related to cystic fibrosis. Review of records shows chronically elevated LFTs. AST and ALT normalized. -GI following. If there is any surgery, can consider liver biopsy at the time. Hypokalemia: Replace today and monitor. mag wnl. GI prophylaxis: PPI. Stool softener. Discharge Planning still on clear liquid diet awaiting final recs from gen sx and GI encouraged ambulation Kristie Montenegro MD Sep 11, 2016 14:42
[2016-09-11 16:00] VITALS: BP 122/74; PULSE 80; RESP 18; TEMP 96.7; O2SAT 98
[2016-09-11] MEDS: SODIUM CHLOR 0.9% 1000 ML INJ 1,000 ML IV SCH ×2 (19:46→23:54)
[2016-09-11 20:00] VITALS: BP 141/82; PULSE 79; RESP 20; TEMP 98.1; O2SAT 99
[2016-09-11 23:51] VITALS: BP 114/72; PULSE 87; RESP 16; TEMP 98.7; O2SAT 96
[2016-09-12] MEDS: metroNIDAZOLE 500 MG INJ 100 ML IV SCH ×4 (02:00→19:59)
[2016-09-12 08:00] VITALS: BP 107/65; PULSE 72; RESP 18; TEMP 96.3; O2SAT 96
[2016-09-12] MEDS: SODIUM CHLORIDE 0.9% FLUSH 10 ML FLUSH IV FLUSH SCH ×2 (08:15→20:00)
[2016-09-12] MEDS: DOCUSATE SODIUM 50 MG/SENNA 8.6 MG TAB PO SCH ×2 (08:16→20:01)
[2016-09-12] MEDS: SODIUM CHLOR 0.9% 1000 ML INJ 1,000 ML IV SCH ×2 (08:16→20:01)
[2016-09-12] MEDS: PANTOPRAZOLE SODIUM 40 MG VIAL IV PUSH SCH ×2 (08:16→20:00)
[2016-09-12] MEDS: MORPHINE SULFATE 4 MG/ML INJ IV PRN (08:17)
--- NOTE | 2016-09-12 08:59 | HHI.GIFU ---
GI Follow-up Note Consult Follow-up Subjective: Patient laying in bed comfortably, no new complaints except his abdomen feels tighter today than yesterday. Passing flatus and stool. Much less pain. Objective: PHYSICAL EXAMINATION: Vitals signs stable No fever HEENT: EOMI ABDOMEN: Soft, nondistended, diminished bowel sounds; tender in left abdomen. 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 Available Data (labs, X- Rays, Procedues) : Liver enzymes continue to improve. Contrast passed through the small intestine on the SBS, though the small intestine still appeared dilated. ASSESSMENT/PLAN:Resolving SBO in this patient with a history of CF and Crohn's disease. His initial surgery at age 6 or 7 included ileocecal resection. In the late 's he had surgery for obstruction due to an intussusception. Will continue clear liquids for today. He's to increase ambulation/activity. Once symptoms resolve fully, he'll f/u with Dr. Princess Ruth to coordinate colonoscopy; we also discussed CTE and small intestine capsule endoscopy. It was a pleasure seeing Kwame Barnes Jr. Entered by: Ridge Kaminski MD Sep 12, 2016 08:59
[2016-09-12 12:00] VITALS: BP_SYST 127; BP_SYST 130; BP_DIAS 59; BP_DIAS 93; PULSE 58; PULSE 70; RESP 18; TEMP 96.9; TEMP 97.3; O2SAT 96
[2016-09-12] MEDS: LEVOFLOXACIN 750 MG PREMIX INJ 150 ML IV SCH (12:46)
--- NOTE | 2016-09-12 13:47 | HHI.PR ---
Subjective Subjective Notes He continues to improve. Pain is better. Having flatus. Not much appetite. Objective Vitals/I&O Vital Signs Date Time Temp Pulse Resp B/P Pulse Ox O2 Delivery O2 Flow Rate FiO2 09/12/16 12:00 96.9 70 18 127/93 96 Labs Date/Time Procedure Status Source Growth 09/07/16 16:46 Urine Culture - Final Complete Urine Clean Catch 10-50,000 CFU/ML MIXED GRAM POSITIVE ... Narrative Exam NAD Abd: moderate distention, improving; mil diffuse ttp, distention A/P Assessment and Plan 30 yo M with h/o Crohn's and cystic fibrosis with abdominal pain resolving obstruction, etiology unclear. Start fulls. MicheletJean rubalcava MD Sep 12, 2016 13:47
--- NOTE | 2016-09-12 14:27 | HHI.PR ---
Subjective Remarks Pt not very hungry today but states that his pain is improving. passing flatus and has BMs. no nausea or vomiting Objective Vitals Vital Signs Date Time Temp Pulse Resp B/P Pulse Ox O2 Delivery O2 Flow Rate FiO2 09/12/16 12:00 96.9 70 18 127/93 96 09/12/16 12:00 97.3 58 18 130/59 96 09/12/16 08:00 96.3 72 18 107/65 96 09/11/16 23:55 18 09/11/16 23:51 98.7 87 16 114/72 96 09/11/16 20:00 98.1 79 20 141/82 99 09/11/16 16:00 96.7 80 18 122/74 98 I/O 09/11/16 09/11/16 09/11/16 09/12/16 09/12/16 09/12/16 06:59 14:59 22:59 06:59 14:59 22:59 Intake Total 1779 ml 1046 ml 480 ml 1939 ml 1934 ml Balance 1779 ml 1046 ml 480 ml 1939 ml 1934 ml Intake Oral 980 ml 228 ml 480 ml 240 ml 1200 ml IV Total 799 ml 818 ml 1699 ml 734 ml # Voids 5 3 2 5 3 # Bowel Movements 0 2 1 0 1 Result Diagram: 09/11/16 0323 09/11/16 0323 Imaging Last Impressions Small Bowel X-Ray 09/10/16 0000 Signed Impressions: Service Date/Time: Saturday, September 10, 2016 08:03 - CONCLUSION: 1. There is no evidence for small bowel obstruction. 2. I see no obvious Crohn's involvement. MR enterography would be of benefit on an outpatient basis to further evaluate the small bowel for Crohn's pathology. Gavin Lundberg MD FACR Abdomen X-Ray 09/09/16 0600 Signed Impressions: Service Date/Time: Friday, September 09, 2016 08:43 - CONCLUSION: Dilated air- filled small bowel loops and paucity of bowel gas in the colon. Pattern is suspicious for small bowel obstruction. Ilir Allison MD Abdomen/Pelvis CT 09/09/16 0000 Signed Impressions: Service Date/Time: Friday, September 09, 2016 09:50 - CONCLUSION: 1. Diffuse small bowel dilatation and numerous small bowel air fluid levels. Colon is normal diameter. Findings are suspicious for distal small bowel obstruction. There is prominent stool-like material in the distal small bowel. An abrupt transition point is not identified. Likely prior hemicolectomy with apparent absence of the ascending colon. 2. Small amount of free fluid in all 4 quadrants. No evidence of free air. 3. Hepatic steatosis. 4. Diffuse fatty replacement of the pancreas consistent with the history of cystic fibrosis. Ilir Allison MD Cholangiopancreatography MRI 09/08/16 0000 Signed Impressions: Service Date/Time: Thursday, September 08, 2016 10:17 - CONCLUSION: 1. Fatty-replaced pancreas consistent with the patient's history of cystic fibrosis. 2. Intrahepatic and extrahepatic biliary ducts within normal limits. 3. Gallbladder not identified. Ilir Allison MD ADDENDUM: Multiple dilated loops of small bowel are seen measuring up to 4.5 cm in diameter. Ilir Allison MD Gall Bladder Ultrasound 09/07/16 1659 Signed Impressions: Service Date/Time: Wednesday, September 07, 2016 17:59 - CONCLUSION: 1. There are some limitations to this study. The bowel gas and significant hepatic steatosis limits the evaluation of the gallbladder. I cannot confidently identify the gallbladder and question whether the patient even has a gallbladder. HIDA scan could be considered to further evaluate. 2. Hepatic steatosis. Leonidas Mahmood Jr., MD Objective Remarks GENERAL: This is a well-nourished, well-developed patient, in no apparent distress. CARDIOVASCULAR: Normal rate and regular rhythm without murmurs RESPIRATORY: Good respiratory efforts. Breath sounds equal and clear to auscultation bilaterally. GASTROINTESTINAL: Abdomen soft, mild distension noted. discomfort to deep palpation in epigastric and left lower quadrant. No guarding MUSCULOSKELETAL: Extremities without edema. NEURO: Alert & Oriented x4 to person, place, time, situation. Moves all ext x4 PSYCH: Appropriate mood and affect. A/P Problem List: (1) Intractable abdominal pain ICD Code: R10.9 Status: Acute (2) Liver enzyme elevation ICD Code: R74.8 Status: Acute Assessment and Plan SBO in a patient with history of Crohn's disease and cystic fibrosis and colon resection : Patient had 2 loose/watery bowel movement today. Small bowel studies did not reveal an obstruction currently. resolving - Appreciate general surgery and GI following. Symptoms improving. pt has been advanced to full liquid by Gen sx. - Continue supportive care with IV fluid and pain control Further plans per GI and general surgery. On Levaquin and Flagyl per Gen Surgery. Cholestatic liver disease: MRCP with normal intrahepatic and extrahepatic biliary ducts. Could be related to cystic fibrosis. Review of records shows chronically elevated LFTs. AST and ALT normalized. -GI following. If there is any surgery, can consider liver biopsy at the time. so fan no plans for surgical intervention. Hypokalemia: Replace today and monitor. mag wnl. GI prophylaxis: PPI. Stool softener. Discharge Planning diet advanced to full liquid awaiting final recs from gen sx and GI encouraged ambulation Kristie Montenegro MD Sep 12, 2016 14:27
[2016-09-12 16:00] VITALS: BP 118/85; PULSE 72; RESP 18; TEMP 97.6; O2SAT 97
[2016-09-12 20:00] VITALS: BP 125/84; PULSE 70; RESP 20; TEMP 97.5; O2SAT 100
[2016-09-13] VITALS: BP 101/69; PULSE 77; RESP 20; TEMP 97.8; O2SAT 96
[2016-09-13] MEDS: metroNIDAZOLE 500 MG INJ 100 ML IV SCH ×3 (01:01→15:25)
[2016-09-13] MEDS: SODIUM CHLOR 0.9% 1000 ML INJ 1,000 ML IV SCH ×2 (01:01→13:14)
[2016-09-13 05:40] LABS: BICARBONATE 25.9 MEQ/L (21.0-32.0); POTASSIUM 3.6 MEQ/L (3.5-5.1)
[2016-09-13 08:00] VITALS: BP 105/69; PULSE 63; RESP 18; TEMP 97.3; O2SAT 96
[2016-09-13] MEDS: DOCUSATE SODIUM 50 MG/SENNA 8.6 MG TAB PO SCH (08:17)
[2016-09-13] MEDS: PANTOPRAZOLE SODIUM 40 MG VIAL IV PUSH SCH (08:18)
[2016-09-13] MEDS: SODIUM CHLORIDE 0.9% FLUSH 10 ML FLUSH IV FLUSH SCH (08:18)
--- NOTE | 2016-09-13 08:40 | HHI.GIFU ---
GI Follow-up Note Consult Follow-up Subjective: Patient laying in bed comfortably, no new complaints. Passing more formed stool. Tolerating a full liquid diet with no pain, N/V. Objective: PHYSICAL EXAMINATION: Vitals signs stable No fever HEENT:EOMI ABDOMEN: Soft, nondistended, minimally tender in upper abdomen. 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 Available Data (labs, X- Rays, Procedues) : Labs noted; no new imaging studies. ASSESSMENT/PLAN:Resolving bowel obstruction; improving liver enzymes. He'll increase ambulation today. D/C home when ok with Dr. Tafoya. F/U with Dr. Neha Ruth after discharge. It was a pleasure seeing Kwame Barnes Jr. Entered by: Ridge Kaminski MD Sep 13, 2016 08:40
[2016-09-13 12:00] VITALS: BP 121/83; PULSE 66; RESP 18; TEMP 97.4; O2SAT 96
--- NOTE | 2016-09-13 12:09 | HHI.PR ---
Subjective Subjective Notes He continues to improve. Much milder abdominal pain. Stools becoming more formed. Tolerating fulls. Objective Vitals/I&O Vital Signs Date Time Temp Pulse Resp B/P Pulse Ox O2 Delivery O2 Flow Rate FiO2 09/13/16 08:00 97.3 63 18 105/69 96 Labs Laboratory Tests Test 09/13/16 03:49 Sodium Level 141 Potassium Level 3.6 Chloride Level 106 Carbon Dioxide Level 25.9 Anion Gap 9 Blood Urea Nitrogen 5 Creatinine 0.70 Estimat Glomerular Filtration 131 Rate Random Glucose 101 Calcium Level 8.7 Narrative Exam NAD Abd: mild distention; mild epigastric ttp A/P Assessment and Plan 30 yo M with h/o Crohn's and cystic fibrosis with abdominal pain He has continued to improve. I would recommend dc home today with 5 days lev/ flagyl. He will f/u with GI Dr. Ruth. I will be happy to see him as an outpatient although surgical intervention is unlikely. I will see him PRN and if desired by Dr. Ruth. He should slowly advance to more substantial diet over the next few days. Michelet,Jean OCONNELL Sep 13, 2016 12:09
[2016-09-13] MEDS ORDERED: METR-1 PO (12:12)
[2016-09-13] MEDS ORDERED: OXYC-392 PO (12:12)
[2016-09-13] MEDS ORDERED: LEVO750T3 PO (12:12)
[2016-09-13] MEDS: LEVOFLOXACIN 750 MG PREMIX INJ 150 ML IV SCH (13:14)
[2016-09-13 16:00] VITALS: BP 104/84; PULSE 69; RESP 18; TEMP 97.1; O2SAT 95
--- NOTE | 2016-09-13 16:24 | HHI.DS ---
Discharge Summary Admission Date Sep 09, 2016 at 09:52 Discharge Date: Sep 13, 2016 Admitting Diagnosis intractable abdominal pain/vomiting (1) Intractable abdominal pain ICD Code: R10.9 Diagnosis: Principal (2) Liver enzyme elevation ICD Code: R74.8 Diagnosis: Principal Procedures none Brief History - From Admission patient is a 30 y/o male with history of Crohn's and cystic fibrosis who presented to ER with abdominal pain. he says that the pain started about a week ago. pain is more or less localized to epigastric area with some radiation to the RUQ. pain is severe in intensity and gets worse with any movement. pain was associated with nausea and one episode of emesis yesterday. he denies any fever or chills. he says that he had HIDA as outpatient and because of persistent pain he decided to come to ER. he's being followed up by . CBC/BMP: 09/11/16 0323 09/13/16 0349 Significant Findings Laboratory Tests Test 09/11/16 09/13/16 03:23 03:49 Red Blood Count 3.67 MIL/MM3 (4.50-5.90) Hemoglobin 11.6 GM/DL (13.0-17.0) Hematocrit 33.0 % (39.0-51.0) Band Neutrophils % 29 % (0-6) Monocytes % 24 % (0-8) Toxic Granulation 2+ (NORMAL) Potassium Level 3.2 MEQ/L (3.5-5.1) Chloride Level 109 MEQ/L (98-107) Blood Urea Nitrogen 6 MG/DL (7-18) 5 MG/DL (7-18) Calcium Level 8.0 MG/DL (8.5-10.1) Total Bilirubin 1.4 MG/DL (0.2-1.0) Total Protein 5.8 GM/DL (6.4-8.2) Albumin 2.4 GM/DL (3.4-5.0) Imaging Last Impressions Small Bowel X-Ray 09/10/16 0000 Signed Impressions: Service Date/Time: Saturday, September 10, 2016 08:03 - CONCLUSION: 1. There is no evidence for small bowel obstruction. 2. I see no obvious Crohn's involvement. MR enterography would be of benefit on an outpatient basis to further evaluate the small bowel for Crohn's pathology. Gavin Lundberg MD FACR Abdomen X-Ray 09/09/16 0600 Signed Impressions: Service Date/Time: Friday, September 09, 2016 08:43 - CONCLUSION: Dilated air- filled small bowel loops and paucity of bowel gas in the colon. Pattern is suspicious for small bowel obstruction. Ilir Allison MD Abdomen/Pelvis CT 09/09/16 0000 Signed Impressions: Service Date/Time: Friday, September 09, 2016 09:50 - CONCLUSION: 1. Diffuse small bowel dilatation and numerous small bowel air fluid levels. Colon is normal diameter. Findings are suspicious for distal small bowel obstruction. There is prominent stool-like material in the distal small bowel. An abrupt transition point is not identified. Likely prior hemicolectomy with apparent absence of the ascending colon. 2. Small amount of free fluid in all 4 quadrants. No evidence of free air. 3. Hepatic steatosis. 4. Diffuse fatty replacement of the pancreas consistent with the history of cystic fibrosis. Ilir Allison MD Cholangiopancreatography MRI 09/08/16 0000 Signed Impressions: Service Date/Time: Thursday, September 08, 2016 10:17 - CONCLUSION: 1. Fatty-replaced pancreas consistent with the patient's history of cystic fibrosis. 2. Intrahepatic and extrahepatic biliary ducts within normal limits. 3. Gallbladder not identified. Ilir Allison MD ADDENDUM: Multiple dilated loops of small bowel are seen measuring up to 4.5 cm in diameter. Ilir Allison MD Gall Bladder Ultrasound 09/07/16 1659 Signed Impressions: Service Date/Time: Wednesday, September 07, 2016 17:59 - CONCLUSION: 1. There are some limitations to this study. The bowel gas and significant hepatic steatosis limits the evaluation of the gallbladder. I cannot confidently identify the gallbladder and question whether the patient even has a gallbladder. HIDA scan could be considered to further evaluate. 2. Hepatic steatosis. Leonidas Mahmood Jr., MD PE at Discharge GENERAL: This is a well-nourished, well-developed patient, in no apparent distress. CARDIOVASCULAR: Normal rate and regular rhythm without murmurs RESPIRATORY: Good respiratory efforts. Breath sounds equal and clear to auscultation bilaterally. GASTROINTESTINAL: Abdomen soft, mild distension noted. discomfort to deep palpation in epigastric and left lower quadrant. No guarding MUSCULOSKELETAL: Extremities without edema. NEURO: Alert & Oriented x4 to person, place, time, situation. Moves all ext x4 PSYCH: Appropriate mood and affect. Pt update on day of discharge pt feeling well. tolerating full liquid diet. no nausea or vomiting, passing flatus and having BMs. pain minimal. excited to go home today Hospital Course SBO in a patient with history of Crohn's disease and cystic fibrosis and colon resection, Small bowel studies did not reveal an obstruction currently. resolving. pt tolerating a full liquid diet and per gen sx should advance slowly to a regular diet. pt passing flatus and BMs. Pt to f/u w gen surg as needed. Gen surg would like pt to finish 5 days of abx. script in chart. Cholestatic liver disease: MRCP with normal intrahepatic and extrahepatic biliary ducts. Could be related to cystic fibrosis. Review of records shows chronically elevated LFTs. AST and ALT normalized. -f/u w GI as an outpatient. Pt Condition on Discharge: Stable Discharge Disposition: Discharge Home Discharge Time: > 30 minutes Discharge Instructions DIET: Follow Instructions for: As Tolerated, No Restrictions Additional Diet Instructions: advance diet slowly Activities you can perform: Regular-No Restrictions Follow up Referrals: Gastroenterology - 1 Week Surgical - 2 Weeks New Medications: Levofloxacin (Levofloxacin) 750 Mg Tablet 750 MG PO DAILY Infection #5 Ref 0 TAB Metronidazole (Flagyl) 500 Mg Tab 500 MG PO TID Infection #15 Ref 0 TAB Oxycodone (Oxycodone) 5 Mg Tab 5 MG PO Q4HR Pain Management #20 Ref 0 TAB Continued Medications: Coenzyme Q10 (Ubidecarenone) (Co Q-10) 50 Mg Cap 1 CAP PO DAILY Multivitamin (Ffn-Ydrolt-Lcqun) 1 Each Tablet 1 TAB PO DAILY Omeprazole (Omeprazole) 20 Mg Tab 20 MG PO DAILY #30 Ref 0 TAB Discontinued Medications: Milk Thistle Seed Extract (Milk Thistle) 200 Mg Capsule 1 CAP PO DAILY Kristie Montenegro MD Sep 13, 2016 16:24
== END 2016-09-13 19:54 | disposition home or self-care (01) | DRG 386 ==
LOC: PHED 16:24 → INTOOBSV 20:02 → PHEDA 20:02 → PH3B 23:04 → OBSVTOIN 09-09 09:52 → N07A 09-10 00:24 → UNDODISIN 09-13 18:45
PROVIDERS: ADMIT Hospitalist; ATTEND Hospitalist
DX: K50.90 Crohn's disease, unspecified, without complications (principal); E84.9 Cystic fibrosis, unspecified; R18.8 Other ascites; K81.1 Chronic cholecystitis; K76.0 Fatty (change of) liver, not elsewhere classified; E87.6 Hypokalemia
CPT/HCPCS: 74020; 74177; 74181; 74250; 76377; 76705; 80048; 80053; 80076; 81001; 83690; 83735; 85007; 85025; 85027; 85610; 87086; 96361; 96374; 96375; C9113; J1170; J1956; J2060; J2270; J2405; J3480; J7030; Q9963; Q9967

== ENCOUNTER 2017-05-09 16:07 | Emergency (ER) | payer OTHER ==
[~2017-05-09] VITALS: Ht 170.2 cm; Wt 80.7 kg
[~2017-05-09 16:07] MED LIST changes: +CO Q50CA PO; -CYCL1TAB29 PO; -IBUP800T23 PO; +LEVO750T3 PO; +METR-1 PO; +MULTTAB68 PO; +OMEP20TA93 PO; +OXYC-392 PO
[2017-05-09 16:23] VITALS: BP 114/65; PULSE 122; RESP 16; TEMP 99.3; O2SAT 96
[2017-05-09] MEDS ORDERED: AMBI5TAB PO (16:44)
[2017-05-09] MEDS ORDERED: PRED5PAK PO (16:44)
[2017-05-09] MEDS ORDERED: HYDR-3516 PO ×2 (16:46→16:47)
[2017-05-09] MEDS ORDERED: DICL75TA PO (16:47)
--- NOTE | 2017-05-09 16:59 | PD ---
HPI Chief Complaint: Musculoskeletal Complaint Time Seen by Provider: 16:30 Travel History International Travel<30 days: No Contact w/Intl Traveler<30days: No Traveled to known affect area: No History of Present Illness HPI 31-year-old male that presents to the ED for evaluation of left knee pain with no injury. 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 Per patient yesterday at the knee itself was swelling and painful. Today the swelling has improved but he has pain on the lateral aspect of the knee. Per patient he feels like his knees about to give out. He does chronically take prednisone for Crohn's disease and inflammatory disorders. Per patient she's been taking high-dose steroids for some time and is in the process of getting transferred to a different medication to better help his Crohn's disease. Per patient he denies any injury or trauma. No numbness, tingling, weakness. He does have some bruising on the left knee which she is unsure of. He denies any taken anything for this. Per patient the pain is 7 out of 10 especially with weightbearing. Able to move it fully however. Has no allergies to medication. Other medical issues. PFSH Past Medical History Cancer: No Cardiovascular Problems: No Cystic Fibrosis: Yes Diminished Hearing: No Diverticulitis: Yes (CROHN'S DISEASE ) Endocrine: No Gastrointestinal Disorders: Yes (CROHNS DISEASE, CIRRHOSIS) Genitourinary: No Immune Disorder: No Musculoskeletal: No Neurologic: No Psychiatric: No Reproductive: No Respiratory: Yes (Cystic Fibrosis) Immunizations Current: Yes Past Surgical History Abdominal Surgery: Yes (Bowel resections x3; 1984; 1996; 1998) Cardiac Surgery: No Ear Surgery: No Endocrine Surgery: No Eye Surgery: No Genitourinary Surgery: No Gynecologic Surgery: No Oral Surgery: No Thoracic Surgery: No Social History Alcohol Use: No Tobacco Use: No Substance Use: No Allergies-Medications (Allergen,Severity, Reaction): Coded Allergies: No Known Allergies (Unverified Adverse Reaction, Unknown, 05/09/17) Reported Meds & Prescriptions Reported Meds & Active Scripts Active Hydrocodone-Acetamin 5-325 mg (Hydrocodone/Acetaminophen) 5 Mg-325 Mg Tablet 1 Tab PO Q6HR PRN Diclofenac Sodium DR (Diclofenac Sodium) 75 Mg Tabdr 75 Mg PO BID PRN Reported Ambien (Zolpidem Tartrate) 5 Mg Tab 5 Mg PO HS PRN Prednisone (21) 5 mg tab Dose Pack (Prednisone) 5 Mg Dspk 5 Mg PO DIRECTED Review of Systems Except as stated in HPI: all other systems reviewed are Neg Physical Exam Narrative GENERAL: SKIN: Warm and dry. HEAD: Atraumatic. Normocephalic. EYES: Pupils equal and round. No scleral icterus. No injection or drainage. ENT: No nasal bleeding or discharge. Mucous membranes pink and moist. NECK: Trachea midline. No JVD. CARDIOVASCULAR: Regular rate and rhythm. RESPIRATORY: No accessory muscle use. Clear to auscultation. Breath sounds equal bilaterally. GASTROINTESTINAL: Abdomen soft, non-tender, nondistended. Hepatic and splenic margins not palpable. MUSCULOSKELETAL: Extremities without clubbing, cyanosis, or edema. No obvious deformities. Full range of motion of the upper and lower extremities bilaterally. 2+ pulses bilaterally. Pain on the lateral aspect of the left knee. Some bruising noted on the medial aspect of the knee but no obvious swelling or deformity noted. Full range of motion any otherwise. valgus and varus test negative. Posterior and anterior drawer test negative. NEUROLOGICAL: Awake and alert. No obvious cranial nerve deficits. Motor grossly within normal limits. Five out of 5 muscle strength in the arms and legs. Normal speech. PSYCHIATRIC: Appropriate mood and affect; insight and judgment normal. Data Data Last Documented VS Vital Signs Date Time Temp Pulse Resp B/P (MAP) Pulse Ox O2 Delivery O2 Flow Rate FiO2 05/09/17 16:23 99.3 122 16 114/65 (81) 96 Orders Orders Knee, Complete (4vws) (05/09/17 ) [facility] Medical Decision Making Medical Screen Exam Complete: Yes Emergency Medical Condition: Yes Medical Record Reviewed: Yes Interpretation(s) X-ray of the left knee was negative for acute bony injury. Differential Diagnosis Fracture versus sprain versus strain versus internal derangement Narrative Course 31-year-old male that presents to the ED for evaluation of injury to the left knee. Patient was properly examined and was found to have signs and symptoms consistent appears to be like internal derangement of the knee. X-ray was ordered. X-ray was negative for acute bony injury. Patient was reassured. Patient was given Rod wrap as well as prescription for the Family USE as needed. Follow with orthopedic doctor. See ED worsening symptoms. Given note for work. Diagnosis Primary Impression: Knee pain, acute Qualified Codes: M25.562 - Pain in left knee Patient Instructions: General Instructions Additional Instructions: Take medications as prescribed. Follow-up with PCP. See ED for any worsening symptoms. Do not drink or drive while taking pain medication. Apply ice or heat as needed for pain Med/Other Pt SpecificInfo: Prescription(s) given Scripts Hydrocodone/Acetaminophen (Hydrocodone-Acetamin 5-325 mg) 5 Mg-325 Mg Tablet 1 TAB PO Q6HR Y for PAIN SCALE 1 TO 10, #12 Prov: Shane Chiu MD 05/09/[address] (Diclofenac Sodium DR) 75 Mg Tabdr 75 MG PO BID Y for PAIN SCALE 1 TO 10, #20 TAB 0 Refills Prov: Shane Chiu MD 05/09/17 Disposition: 01 DISCHARGE HOME Condition: Stable Du Denson May 09, 2017 16:59
--- NOTE | 2017-05-09 17:21 | RADRPT ---
EXAM DATE/TIME: 05/09/2017 16:42 [facility] COMPARISON: No previous studies available for comparison. INDICATIONS : No known injury. Pain and swelling last night after patient got home from work. MEDICAL HISTORY : Crohn's disease. Cystic fibrosis. SURGICAL HISTORY : Bowel resection. ENCOUNTER: Initial ACUITY: 1 day PAIN SCORE: 4/10 LOCATION: Left Knee FINDINGS: Four view examination of the left knee demonstrates no evidence of fracture or dislocation. Bony min eralization is normal. The articular surfaces are intact. The suprapatellar soft tissues have a nor mal configuration. CONCLUSION: Negative exam. Rai Bhatti MD on May 09, 2017 at 17:18 Board Certified Radiologist. This report was verified electronically.
== END 2017-05-09 17:45 | disposition home or self-care (01) ==
LOC: PHEFT 16:07
DX: M25.562 Pain in left knee (principal); K50.90 Crohn's disease, unspecified, without complications; E84.9 Cystic fibrosis, unspecified
CPT/HCPCS: 73564; 99283